=== PATIENT | female | born 1960 | race Caucasian/White ===

== ENCOUNTER 2019-08-06 09:26 | Outpatient (CLI) | payer OTHER, SELFPAY ==
--- NOTE | ~2019-08-06 | MM_ITS ---
EXAMINATION: MM screening mina BI w karri HISTORY: Screening mammogram TECHNIQUE: Craniocaudal and mediolateral oblique 3-D tomosynthesis images were obtained and synthetic 2-D images were generated. CAD analysis was submitted and interpreted. COMPARISON: 05/22/2018, 05/17/2017, 05/11/2016 bilateral digital screening mammogram examinations BREAST PARENCHYMAL COMPOSITION: The breasts are extremely dense, which lowers the sensitivity of mamm ography. FINDINGS: Occasional bilateral benign calcifications. There is a new approximately 6.5 mm circumscrib ed mass in the lower left breast near midline. Diagnostic left mammogram and left breast ultrasound e xamination are recommended. Otherwise there is no evidence of suspicious mass, calcification, or architectural distortion to sugg est malignancy in either breast. There has been no suspicious interval change. IMPRESSION: 1. New 6.5 L circumscribed mass in the lower mid left breast 2. Diagnostic left mammogram and left breast ultrasound examination are recommended. BI-RADS Category 2: Benign finding(s). Reviewed, dictated and finalized at location A. IMPRESSION: 1. New 6.5 L circumscribed mass in the lower mid left breast 2. Diagnostic left mammogram and left breast ultrasound examination are recomme nded. BI-RADS Category 2: Benign finding(s).
--- NOTE | ~2019-08-06 | DEXA_ITS ---
Bone Density Report Name: Jamie Prasad Age: 59 Sex: Female Ethnicity: White Date of : 1960 Indication: osteopenia; monitoring treatment; height loss; inflammatory bowel disease; prior fracture; hysterectomy; Referring Provider: Kady Peraza Study: Bone densitometry was performed. Exam Date: August 06, 2019 Accession number: [id number] Bone Density: Region BMD T-score Z-score Classification AP Spine (L1, L2, L3) 0.811 -1.9 -0.5 Osteopenia Femoral Neck (Left) 0.681 -1.5 -0.2 Osteopenia Total Hip (Left) 0.804 -1.1 -0.2 Osteopenia Total Hip Bilateral Avg 0.751 -1.6 -0.7 Osteopenia Femoral Neck (Right) 0.629 -2.0 -0.7 Osteopenia Total Hip (Right) 0.697 -2.0 -1.1 Osteopenia World Health Organization criteria for BMD impression classify patients as: Normal (T-score at or above -1.0), Osteopenia (T-score between -1.0 and -2.5), or Osteoporosis (T-score at or below -2.5). 10-year Fracture Risk: FRAX not reported because: Treated for osteoporosis Previous Exams: Region Exam Age BMD T-score BMD Change BMD Change Date g/cm2 vs Baseline vs Previous AP Spine(L1, L2, L3) 08/06/2019 59 0.811 -1.9 -0.132(-14.0%) -0.052(-6.0%)* 05/17/2017 57 0.863 -1.4 -0.080(-8.5%)# -0.002(-0.2%) 05/07/2015 54 0.865 -1.4 -0.078(-8.2%)# -0.031(-3.5%)# 04/24/2013 52 0.897 -1.1 -0.046(-4.9%)# 0.022(2.6%) 04/19/2011 50 0.874 -1.3 -0.069(-7.3%)# -0.020(-2.2%)# 12/11/2008 48 0.894 -1.1 -0.049(-5.2%)* -0.029(-3.2%)* 06/22/2005 45 0.923 -0.9 -0.020(-2.1%) -0.020(-2.1%) 06/13/2003 43 0.943 -0.7 Total Hip(Left) 08/06/2019 59 0.804 -1.1 -0.098(-10.9%) -0.009(-1.1%) 05/17/2017 57 0.812 -1.1 -0.089(-9.9%)# -0.074(-8.3%)* 05/07/2015 54 0.886 -0.5 -0.016(-1.7%)# 0.016(1.8%)# 04/24/2013 52 0.870 -0.6 -0.031(-3.5%)# -0.014(-1.5%) 04/19/2011 50 0.884 -0.5 -0.018(-2.0%)# -0.048(-5.2%)# 12/11/2008 48 0.932 -0.1 0.030(3.4%)* 0.105(12.7%)* 06/22/2005 45 0.827 -0.9 -0.075(-8.3%)* -0.075(-8.3%)* 06/13/2003 43 0.902 -0.3 Total Hip(Right) 08/06/2019 59 0.697 -2.0 -0.186(-21.0%) -0.054(-7.2%)* 05/17/2017 57 0.751 -1.6 -0.131(-14.9%) -0.072(-8.7%)* 05/07/2015 54 0.823 -1.0 -0.059(-6.7%)# -0.003(-0.4%)# 04/24/2013 52 0.827 -0.9 -0.056(-6.3%)# 0.029(3.6%)* 04/19/2011 50 0.798 -1.2 -0.085(-9.6%)# -0.056(-6.5%)# 12/11/2008 48 0.854 -0.7 -0.029(-3.3%)* 0.008(0.9%) 06/22/2005 45 0.846 -0.8 -0.037(-4.2%)* -0.037(-4.2%)* 06/13/2003 43 0.883 -0.5 *Denotes signi
== END 2019-08-06 09:27 | disposition home or self-care (01) ==
PROVIDERS: PCP Family Medicine Adolescent Medicine; Visit Provider Student in an Organized Health Care Education/Training Program
DX: Z12.31 Encounter for screening mammogram for malignant neoplasm of breast (principal); Z78.0 Asymptomatic menopausal state; M85.88 Other specified disorders of bone density and structure, other site; M85.852 Other specified disorders of bone density and structure, left thigh; M85.851 Other specified disorders of bone density and structure, right thigh
CPT/HCPCS: 77063; 77067; 77080

== ENCOUNTER 2019-08-27 13:56 | Outpatient (CLI) | payer OTHER, SELFPAY ==
--- NOTE | ~2019-08-27 | MMUS_ITS ---
EXAMINATION: MM diagnostic mammo unilat LT, US breast LT complete HISTORY: New 6.5 mm circumscribed mass reported on 08/06/2019 bilateral digital screening mammogram TECHNIQUE: Additional ML and spot ML and MLO 3-D tomosynthesis images of the left breast were perform ed and synthetic 2-D images were generated. CAD analysis was submitted and interpreted. High resoluti on complete left breast ultrasound was performed. COMPARISON: 08/06/2019 bilateral digital screening mammogram BREAST PARENCHYMAL COMPOSITION: The breasts are extremely dense, which lowers the sensitivity of mamm ography. FINDINGS: MAMMOGRAPHIC FINDINGS: A 6 mm circumscribed mass with halo sign is confirmed anteriorly in the lower outer quadrant of the l eft breast (MLO spot Tomosynthesis image 5/34). ULTRASOUND: 1:00 6 cm from nipple: Parallel circumscribed 4 x 5 x 3.4 mm probable benign lymph node 7:00 1 cm from nipple: Corresponding to the mammographic finding in the anterior lower outer quadrant of the left breast is a parallel circumscribed superficial 5.2 x 7.5 x 8.0 mm hypoechoic lesion with through transmission and posterior enhancement, likely a complicated cyst. IMPRESSION: 1. Benign findings 2. Routine mammographic screening is recommended BI-RADS Category 2: Benign finding(s). Reviewed, dictated and finalized at location A. IMPRESSION: 1. Benign findings 2. Routine mammographic screening is recommended BI-RADS Category 2: Benign finding(s).
== END 2019-08-27 13:57 | disposition home or self-care (01) ==
LOC: ANHIMG 13:56
PROVIDERS: PCP Family Medicine Adolescent Medicine; Visit Provider Student in an Organized Health Care Education/Training Program
DX: R92.8 Other abnormal and inconclusive findings on diagnostic imaging of breast (principal)
CPT/HCPCS: 76641; 77065

== ENCOUNTER 2019-12-20 10:06 | Outpatient (CLI) | payer OTHER, SELFPAY ==
--- NOTE | 2019-12-20 10:48 | ECG_ITS ---
Measurements Intervals [place] Rate: 69 P: 82 OR: 223 QRS: 82 QRSD: 91 T: 53 QT: 403 QTc: 433 Interpretive Statements SINUS RHYTHM WITH FIRST DEGREE AV BLOCK VENTRICULAR PREMATURE COMPLEX DELAYED PRECORDIAL R/S TRANSITION BASELINE ARTIFACT- I, II, AVR, AVL ABNORMAL ECG Electronically Signed On 12-20-2019 11:45:27 CDT by Anival Cruz D.O.
[2019-12-20 11:12] LABS: Basophils Percent Auto 0.7 % (0.2-1.2); Hematocrit 39.4 % (37.0-47.0); Hemoglobin 13.5 g/dL (12.0-15.0); Immature Granulocyte Absolute 0.01 K/mm3 (0.00-0.031); Immature Granulocyte Percent A 0.2 % (0-0.5); Lymphocytes Absolute Auto 1.71 K/mm3 (0.9-3.2); Lymphocytes Percent Auto 30.2 % (18.3-44.2); Mean Corpuscular HGB Conc 34.3 g/dl (32-36); Mean Corpuscular Hemoglobin 30.5 pg (26-34); Mean Corpuscular Volume 88.9 fl (80-100); Mean Platelet Volume 10.3 fl (7.4-10.4); Monocytes Absolute Auto 0.4 K/mm3 (0.1-0.6); Monocytes Percent Auto 7.2 % (2.6-8.5); Neutrophils Absolute Auto 3.5 K/mm3 (1.3-6.7); Neutrophils Percent Auto 61.7 % (45.5-73.1); Platelet Count Result 216 k/mm3 (150-375); Red Blood Count 4.43 M/mm3 (4.2-5.4); Red Cell Distribution Width 11.9 % (11.5-14.5); White Blood Count 5.7 K/mm3 (4.5-10.0)
[2019-12-20 11:15] LABS: Add Urine Microscopic? YES; Appearance Urine Clear (Clear); Bilirubin Urine Negative (Negative); Blood Urine 1+ (Negative); Color Urine Yellow (Yellow); Glucose Urine UA Negative (Negative); Ketones Urine Negative (Negative); Leukocyte Esterase Ur Negative LEU/UL (Negative); Mucus Urine Few /lpf; Nitrate Urine Negative (Negative); Protein Urine Negative (Negative); RBC Urine 0-2 /hpf (0-2); Specific Grav Ur 1.017 (1.001-1.035); Squamous Epithelial Cell Urine Few /hpf (Few); Urobilinogen Urine Negative mg/dL (<2.0); WBC Urine 0-3 /hpf
[2019-12-20 11:19] LABS: Urine Cotinine NEGATIVE
[2019-12-20 11:21] LABS: Hemoglobin A1C 5.1 % (<5.7)
[2019-12-20 11:25] LABS: Partial Thromboplastin Time 27.3 SECONDS (22.3-36.8); Prothrombin Time 12.9 Seconds (11.1-14.7)
[2019-12-20 11:28] LABS: Anion Gap 4 mmol/L (8-16); Blood Urea Nitrogen 15 mg/dL (7-17); Calcium 9.1 mg/dL (8.4-10.2); Carbon Dioxide 31 mmol/L (22-30); Chloride 102 mmol/L (98-107); Estimated Glomerular Filt Rate > 60; Glucose 95 mg/dL (65-105); Potassium 4.3 mmol/L (3.4-5.0); Sodium 137 mmol/L (137-145)
== END 2019-12-20 10:07 | disposition home or self-care (01) ==
LOC: ANHSURGERY 10:07
PROVIDERS: PCP Family Medicine Adolescent Medicine; Visit Provider Orthopaedic Surgery
DX: Z01.818 Encounter for other preprocedural examination (principal); M16.9 Osteoarthritis of hip, unspecified; I44.0 Atrioventricular block, first degree; R94.31 Abnormal electrocardiogram [ECG] [EKG]; Z79.890 Hormone replacement therapy
CPT/HCPCS: 80048; 80307; 81001; 82040; 83036; 85025; 85610; 85730; 86850; 86900; 86901; 87081; 93005

== ENCOUNTER 2019-12-29 00:50 | Outpatient (CLI) | payer OTHER, SELFPAY ==
[2019-12-29 18:05] LABS: SARS-CoV-2 RNA PCR Negative
== END 2019-12-29 00:51 | disposition home or self-care (01) ==
LOC: ANHCOVIDDT 00:50
PROVIDERS: PCP Family Medicine Adolescent Medicine; Visit Provider Orthopaedic Surgery
DX: Z01.812 Encounter for preprocedural laboratory examination (principal); Z20.828 Contact with and (suspected) exposure to other viral communicable diseases
CPT/HCPCS: 87635; C9803; U0003

== ENCOUNTER 2020-01-02 10:47 | Observation (INO) | payer OTHER, SELFPAY ==
[2019-12-20 10:12] VITALS: BMI 20.3
[2019-12-20 10:48] VITALS: BP 117/77; PULSE 72; RESP 16; TEMP 36.7; O2SAT 99
--- NOTE | 2019-12-27 14:35 | PM.IMHP ---
H&P: HPI History of Present Illness Date/Time: Hip Pain Pt presents with Right hip pain that has been present for 2-3 years. She received a cortisone injection July of 2018 which have given results up until this point. She would like to discuss further surgical intervention Involved hip: right Onset: gradual Location of pain: medial, lateral, anterior and posterior Character: stabbing, aching, shooting and weakness Timing of pain: constant Exacerbated by: weight bearing and prolonged activity Relieved by: nothing Associated symptoms: Reports leg pain at rest and weakness History of occupational/recreational activity with repetitive movement: No History of prior hip injury: No Chief complaint: DJD Right Hip Narrative: Jamie Prasad is a 59 year old female Review of Systems Review of Systems: All systems reviewed & are unremarkable except as noted in HPI and below Constitutional: Constitutional: Denies headache(s) and Denies weakness Eyes: Eyes: Denies blurry vision, Denies change in vision and Denies loss of vision ENT: Denies dizziness, Denies dry mouth, Denies headache(s) and Denies nasal congestion Cardiovascular: Cardiovascular: Denies chest pain, Denies syncope, Denies leg edema and Denies dyspnea on exertion Respiratory: Respiratory: Denies cough and Denies dyspnea on exertion Gastrointestinal: Gastrointestinal: Denies abdominal pain, Denies constipation and Denies diarrhea Genitourinary: Genitourinary: Denies urinary frequency Musculoskeletal: Musculoskeletal: Reports as per HPI and Denies numbness Integumentary/Breasts: Skin/Breast: Reports system reviewed and no additional complaints, except as docu Neurologic: Denies dizziness, Denies syncope, Denies headache(s), Denies loss of vision, Denies numbness and Denies weakness Psychiatric: Psychiatric: Reports no additional psychiatric complaints Endocrine: Endocrine: Reports no additional endocrine complaints Hematologic/Lymphatic: Hematologic/Lymphatic: Reports no additional hematologic/lymphatic complaints [facility] Past Medical History Medical History (Updated 11/30/19 @ 12:31 by Fercho Issa MD) Acid reflux Arthritis High cholesterol History of vaginal delivery x 2 Surgical History Surgical History History of breast biopsy History of hysterectomy History of tonsillectomy Family History Family History Other Family history of cardiovascular disease Hypertension Social History Social History Smoking status: Never smoker Second hand tobacco smoke exposure: No Additional smoking assessment comments: DENIES ANY FORM OF TOBACCO/NICOTINE USE Alcohol intake: current Spiritual care concerns: No Meds Home Medications and Allergies Home Medications Medication Instructions Recorded Confirmed Type Lactobacills gasseri-Bifidobac 1 cap PO DAILY 04/13/19 12/20/19 History bifidum,longum 1.5 billion cell capsule linaclotide 72 mcg capsule 72 mcg PO PRN PRN 04/13/19 12/20/19 History melatonin 5 mg capsule 30 mg PO HS 04/13/19 12/20/19 History conjugated estrogens 1.25 mg tablet 1.25 mg PO DAILY #90 tablet 09/02/19 12/20/19 Rx chlorhexidine gluconate 4 % 1 applic TOPICAL ONCE #237 ml 12/03/19 12/20/19 Rx topical liquid cholecalciferol (vitamin D3) 25 mcg PO DAILY 12/20/19 12/20/19 History estradiol [Imvexxy Maintenance 10 mcg VAGINAL 2XW 12/20/19 12/20/19 History Pack] [id number] 1 cap PO DAILY 12/20/19 12/20/19 History [Krill Oil ([place] 3 and 6)] omeprazole [Prilosec] 20 mg PO DAILY 12/20/19 12/20/19 History Allergies Allergy/AdvReac Type Severity Reaction Status Date / Time No Known Allergies Allergy Verified 12/20/19 10:13 Exam Narrative: Exam Narrative: Exam Const Constitutional General: cooperative, healthy emma
--- NOTE | 2019-12-31 10:05 | WPDANESEPPF ---
Anes - Initial Pre Proc Eval Procedure: Operation Date: 01/01/20 07:30 Proposed Procedures p Right Total Hip Arthroplasty - Fercho Issa MD Date/Time: 12/31/19 10:05 Surgeon: Fercho Issa MD Pre Op Diagnosis: DJD Right Hip Patient Data Age: 59 Gender: F Height: 1.68 m Weight: 57.2 kg Last Vital Signs Temp 36.7 C 12/20/19 10:48 Pulse 72 12/20/19 10:48 Resp 16 12/20/19 10:48 BP 117/77 12/20/19 10:48 Pulse Ox 99 12/20/19 10:48 Allergies Allergy/AdvReac Type Severity Reaction Status Date / Time No Known Allergies Allergy Verified 01/01/20 06:13 Home Medications Medication Instructions Recorded Confirmed Type Lactobacills gasseri-Bifidobac 1 cap PO DAILY 04/13/19 01/01/20 History bifidum,longum 1.5 billion cell capsule linaclotide 72 mcg capsule 72 mcg PO PRN PRN 04/13/19 01/01/20 History melatonin 5 mg capsule 30 mg PO HS 04/13/19 01/01/20 History conjugated estrogens 1.25 mg tablet 1.25 mg PO DAILY #90 tablet 09/02/19 01/01/20 Rx chlorhexidine gluconate 4 % 1 applic TOPICAL ONCE #237 ml 12/03/19 01/01/20 Rx topical liquid cholecalciferol (vitamin D3) 25 mcg PO DAILY 12/20/19 01/01/20 History estradiol [Imvexxy Maintenance 10 mcg VAGINAL 2XW 12/20/19 01/01/20 History Pack] [id number] 1 cap PO DAILY 12/20/19 01/01/20 History [Krill Oil ([place] 3 and 6)] omeprazole [Prilosec] 20 mg PO DAILY 12/20/19 01/01/20 History ECG: Date of Service: 12/20/19 Procedure(s): CA 12 lead EKG Accession Number(s): [id number] cc: ~ Measurements Intervals [place] Rate: 69 P: 82 MS: 223 QRS: 82 QRSD: 91 T: 53 QT: 403 QTc: 433 Interpretive Statements SINUS RHYTHM WITH FIRST DEGREE AV BLOCK VENTRICULAR PREMATURE COMPLEX DELAYED PRECORDIAL R/S TRANSITION BASELINE ARTIFACT- I, II, AVR, AVL ABNORMAL ECG Electronically Signed On 12-20-2019 11:45:27 CDT by Anival Cruz D.O. Dictated By: Anival Cruz DO 12/20/19 1119 Patient hx anesthesia problems: none Family hx anesthesia problems: none PMFSH Past Medical History Medical History (Updated 12/31/19 @ 10:06 by Richard Velazquez MD) Acid reflux Arthritis Degenerative joint disease (DJD) of hip High cholesterol History of vaginal delivery x 2 Surgical History Surgical History History of breast biopsy History of hysterectomy History of tonsillectomy Family History Family History Other Family history of cardiovascular disease Hypertension Social History Social History Smoking status: Never smoker Second hand tobacco smoke exposure: No Additional smoking assessment comments: DENIES ANY FORM OF TOBACCO/NICOTINE USE Alcohol intake: current Living arrangements: with family Spiritual care concerns: No Anes - Eval Final PreProcedure Day of Procedure 12/31/19 10:05 Patient weight: overweight Heart: regular rate and rhythm Lungs: clear to auscultation and normal air movement Airway: Mallampati scale class II Neurological: alert and oriented Last oral intake: >/= 8 hours ASA classification: II Emergent: no Anesthetic plan: proceed Anesthesia type and monitoring: general ETT Informed Consent: The patient's anesthetic plan and its attendant risks and benefits were discussed with the patient/family/POA. Questions were solicited and answers provided to the satisfaction of the patient/family/POA.
[2020-01-01] VITALS (18 sets, daily range): BP systolic 126–176; BP diastolic 54–95; PULSE 64–87; RESP 12–18; TEMP 36.2–36.7; O2SAT 89–100
[2020-01-01] MEDS: ACETAMINOPHEN 500 MG TABLET 1000 MG PO (06:18)
[2020-01-01] MEDS: LACTATED RINGERS 1,000 ML 30 ML IV CONT ×2 (06:30→10:20)
[2020-01-01] MEDS: KETOROLAC 15 MG/ML VIAL (*BKC) IV PUSH (06:37)
[2020-01-01] MEDS: TRANEXAMIC ACID 1,000MG/ISO100 1,000 MG/100 ML BAG 200 MG IVPB (07:07)
--- NOTE | 2020-01-01 07:26 | WPDHPUPDATE1 ---
History and Physical Update Update Date/Time: 01/01/20 07:26 History and Physical has been reviewed, including an updated exam of the patient. There are NO changes in the patient's condition. Risks, benefits, and alternatives have been discussed and questions answered. Patient agrees to proceed with procedure.
[2020-01-01] MEDS: ceFAZolin 2 GM/D5W 50 ML 2 GM/50 ML BAG IVPB ×3 (07:30→20:01)
[2020-01-01] MEDS: fentaNYL CITRATE INJ (*CRX) 100 MCG/2 ML VIAL 25 MCG IV PUSH ×8 (10:29→10:50)
--- NOTE | 2020-01-01 10:38 | PM.PROC ---
Procedure Note - Detailed Date of procedure: 01/01/20 Pre-op diagnosis: DJD Right Hip R HIP DJD Post-op diagnosis: same Procedure performed: R JOANIE Description of procedure: THE PATIENT WAS TAKEN TO THE OPERATING ROOM IN STABLE CONDITION AND WAS PLACED IN THE LATERAL DECUBITUS AND THE RIGHT LOWER EXTREMITY WAS PREPPED AND DRAPED IN THE STERILE FASHION. INCISION WAS MADE IN THE POSTERIOR LATERAL SIDE OF THE HIP, DOWN TO THE FASCIA LAYER. THE FASCIA WAS INCISED. THE HIP WAS EXPOSED. THE SHORT EXTERNAL ROTATORS WERE EXPOSED. THE SCIATIC NERVE WAS IDENTIFIED. THERE WAS A HIGH BIFURCATION OF THE NERVE. INCISION WAS MADE THROUGH THE SORT EXTERNAL ROTATORS AND THE CAPSULE OF THE HIP JOINT. THE HIP WAS DISLOCATED. AN OSTEOTOMY WAS MADE TO THE FEMORAL NECK ABOUT 1 CM PROXIMAL TO THE LESSER TROCHANTER. THE ACETABULUM WAS EXPOSED. THERE WAS SEVERE DJD SEEN. BEGINNING WITH A 44 REAMER THE ACETABULUM WAS REAMED TO 49 MM. A 49 MM TRIAL WAS PLACED IN 35 DEG OF ABDUCTION AND ANTEVERSION WAS IN ALIGNMENT WITH THE TRANS ACETABULAR LIGAMENT. THE FIT WAS EXCELLENT. THE TRIAL WAS REMOVED. A 50 MM BIOMET G7 COMPONENT WAS THEN TAPPED IN TO PLACE IN 35 DEG OF ABDUCTION AND ANTEVERSION IN ALIGNMENT WITH THE TRANSVERSE ACETABULAR LIGAMENT. THE FIT WAS EXCELLENT. THE ACETABULAR LINER WAS PLACED AND CHECKED FOR STABILITY. NEXT THE FEMUR WAS PREPARED WITH INITIAL CANAL FINDER THEN SEQUENTIAL BROACHING WITH A TAPERLOC HIP SYSTEM, UNTIL A 14 BROACH FIT WELL IN 15 OF ANTEVERSION. A +6 STANDARD OFFSET NECK WITH 36 MM HEAD TRIAL WAS PLACED. THE MAURA TEST WAS EXCELLENT AND THE STABILITY IN FLEXION AND ROTATION WAS EXCELLENT. LEG LENGTHS WERE GROSSLY EQUAL. TRIALS WERE REMOVED. A BIOMET TAPERLOC 14 STEM WAS PLACED WITH A STANDARD OFFSET NECK. THE FIT WAS EXCELLENT IN 15 DEG OF ANTEVERSION. A +6 CERAMIC 36 MM FEMORAL HEAD WAS PLACED. THE HIP WAS TRIALED AND THE STABILITY WAS EXCELLENT WERE THE LEG LENGTHS AND THE SCHUK TEST. THE WOUND WAS IRRIGATED WITH STERILE BETADINE AND WATER FOR 3 MIN. THEN WASHED AGAIN. THE CAPSULE AND THE EXTERNAL ROTATORS WERE APPROXIMATED WITH NUMBER 1 VICRYL. THE FASCIA WITH No 2 QUIL AND THE SUB CUTANEOUS LAYER WITH 2-0 ABSORBABLE SUTURE WITH A RUNNING 3-0 SUBCUTICULAR LAYER WELL. DERMABOND WAS PLACED AND STERILE DRESSING WAS APPLIED. PATIENT WAS PLACED BACK ON TO THE SUPINE POSITION AND WAS EXTUBATED. Anesthesia: GETA Surgeon: Fercho Issa MD Estimated blood loss (mL): 300 Drains: No Complications: No immediate complications Condition: stable Disposition: PACU
[2020-01-01] MEDS: HYDROmorphone HCL INJ (*CRX) 1 MG/ML SYR 0.25 MG IV PUSH ×8 (10:56→11:31)
[2020-01-01] MEDS: MIDAZOLAM HCL (*CRX) 2 MG/2 ML VIAL 1 MG IV PUSH (11:31)
--- NOTE | 2020-01-01 12:36 | ADMGEN ---
This patient, Jamie Prasad, was admitted to 2 Medical Room 247-. Patient/family oriented to hospital policies and general routines including ID bracelet, bed and alarms, visiting hours, pain management, procedures, bathroom and other care routines, personal items, smoking policy, room service/diet, and visiting hours. Information on how to activate the Rapid Response Team has been discussed. Patient/Family are encouraged to report perceived risks to care and to ask questions if they do not understand what they are told or what they should do.
[2020-01-01] MEDS: MORPHINE SULFATE (*CRX) 4 MG/ML INJ 3 MG IV PUSH ×2 (12:49→16:00)
[2020-01-01] MEDS: SODIUM CHLORIDE 0.9% IV 1,000 ML 125 ML IV CONT ×2 (12:54→22:14)
[2020-01-01 13:03] LABS: Hematocrit 35.1 % (37.0-47.0); Hemoglobin 11.8 g/dL (12.0-15.0)
[2020-01-01] MEDS: ONDANSETRON INJ 4 MG/2 ML VIAL IV PUSH (15:13)
[2020-01-01] MEDS: diazePAM (*CRX) 5 MG TABLET PO (16:07)
[2020-01-01] MEDS: DOCUSATE SODIUM 100 MG CAPSULE PO (16:07)
[2020-01-01] MEDS: HYDROcodone/acetaminophen (*CRX) 7.5-325 MG TABLET 1 TAB PO ×2 (19:06→22:17)
[2020-01-01] MEDS: FAMOTIDINE 20 MG TABLET PO (20:53)
[2020-01-02] VITALS (8 sets, daily range): BP systolic 103–126; BP diastolic 45–62; PULSE 74–100; RESP 15–22; TEMP 36.1–37.2; O2SAT 98–100
--- NOTE | ~2020-01-02 | XR_ITS ---
EXAMINATION: XR hip RT 1V DATE: 01/01/2020 10:30 INDICATION: Postoperative evaluation following right total hip arthroplasty TECHNIQUE: Anteroposterior view of the right hip were obtained. COMPARISON: 11/30/2019 FINDINGS: Interval placement of a right total hip arthroplasty which appears well seated in near anatomic align ment. Expected subcutaneous gas in the postoperative bed. No fractures identified. IMPRESSION: 1. Right total hip arthroplasty, negative for postoperative purposes. Reviewed, dictated and finalized at location B.
[2020-01-02] MEDS: diazePAM (*CRX) 5 MG TABLET PO ×3 (00:41→17:04)
[2020-01-02] MEDS: HYDROcodone/acetaminophen (*CRX) 7.5-325 MG TABLET 1 TAB PO ×6 (01:24→18:31)
[2020-01-02] MEDS: ceFAZolin 2 GM/D5W 50 ML 2 GM/50 ML BAG IVPB (04:37)
[2020-01-02 05:55] LABS: Basophils Percent Auto 0.1 % (0.2-1.2); Hematocrit 25.7 % (37.0-47.0); Hemoglobin 8.6 g/dL (12.0-15.0); Immature Granulocyte Absolute 0.05 K/mm3 (0.00-0.031); Immature Granulocyte Percent A 0.4 % (0-0.5); Lymphocytes Absolute Auto 1.44 K/mm3 (0.9-3.2); Lymphocytes Percent Auto 11.5 % (18.3-44.2); Mean Corpuscular HGB Conc 33.5 g/dl (32-36); Mean Corpuscular Hemoglobin 30.2 pg (26-34); Mean Corpuscular Volume 90.2 fl (80-100); Mean Platelet Volume 10.6 fl (7.4-10.4); Monocytes Percent Auto 8.3 % (2.6-8.5); Neutrophils Percent Auto 79.7 % (45.5-73.1); Platelet Count Result 152 k/mm3 (150-375); Red Blood Count 2.85 M/mm3 (4.2-5.4); Red Cell Distribution Width 12.2 % (11.5-14.5); White Blood Count 12.6 K/mm3 (4.5-10.0)
[2020-01-02 06:08] LABS: Anion Gap 3 mmol/L (8-16); Blood Urea Nitrogen 8 mg/dL (7-17); Calcium 7.5 mg/dL (8.4-10.2); Carbon Dioxide 28 mmol/L (22-30); Chloride 105 mmol/L (98-107); Estimated CRCL calculation 79 ml/min; Estimated Glomerular Filt Rate > 60; Glucose 102 mg/dL (65-105); Potassium 3.9 mmol/L (3.4-5.0); Sodium 136 mmol/L (137-145)
[2020-01-02] MEDS: SODIUM CHLORIDE 0.9% IV 1,000 ML 125 ML IV CONT (07:16)
--- NOTE | 2020-01-02 07:46 | WPDANESPN ---
Anes - Prog Note Post-Op Date/Time: 01/02/20 07:46 Cardiovascular status: normal Respiratory status: normal Airway patency: baseline Mental status: baseline Post-Op hydration status: normal Vital Signs: Last Vital Signs Temp 97.7 F 01/02/20 06:14 Pulse 100 01/02/20 06:14 Resp 20 01/02/20 06:14 BP 103/59 L 01/02/20 06:14 Pulse Ox 98 01/02/20 06:14 Pain Score (VAS): 03/16 I/O: Intake & Output 01/01/20 01/01/20 01/02/20 15:59 23:59 07:59 Intake Total 450 1520 1390 Output Total 500 2000 Balance 450 1020 -610 Laboratory Tests 01/02/20 05:28 01/02/20 05:28 01/01/20 01/02/20 01/02/20 12:47 05:28 05:28 WBC 12.6 H RBC 2.85 L Hgb 11.8 L 8.6 L D Hct 35.1 L 25.7 L MCV 90.2 MCH 30.2 MCHC 33.5 RDW 12.2 Plt Count 152 MPV 10.6 H Immature Gran % (Auto) 0.4 Neut % (Auto) 79.7 H Lymph % (Auto) 11.5 L [place] % (Auto) 8.3 Eos % (Auto) 0.0 Baso % (Auto) 0.1 L Lymph # (Auto) 1.44 [place] # (Auto) 1.0 H Eos # (Auto) 0.0 Baso # (Auto) 0.0 Abs Immat Gran (auto) 0.05 H Absolute Neuts (auto) 10.0 H Absolute Nucleated RBC 0.0 Nucleated RBC % 0.0 Sodium 136 L Potassium 3.9 Chloride 105 Carbon Dioxide 28 Anion Gap 3 L BUN 8 D Creatinine 0.60 L Estim Creat Clear Calc 79 Estimated GFR > 60 Glucose 102 Calcium 7.5 L Post-procedural complaints: none Patient Feedback: Patient satisfied with anesthetic care.
[2020-01-02] MEDS: KETOROLAC 30 MG/ML VIAL (*BKC) IV PUSH (08:06)
--- NOTE | 2020-01-02 08:11 | PC.NURSE ---
Patient has had c/o nausea intermittently since surgery. C/o right hip pain 6/ and will try a pain pill again after breakfast. Trembling and quivering of lips noted and patient states it is related to pain. Neurovascular check completed and patient c/o sharp pain with movement of right leg. Dressing D/I to right leg and no bruising or swelling noted. Neurovascular check WNL. Will give a dose of Toradol IVP until patient tolerates po intake. Attempting breakfast at this time.
--- NOTE | 2020-01-02 09:01 | PM.PNORT ---
Progress Note: A&P Additional Plan POD 1 DOING WELL. CONTINUE PT. ANTICIPATE DC ON TUESDAY Subjective Subjective Date/Time Seen: 01/02/20 09:01 POD 1 DOING WELL. PAIN CONTROL IMPROVED. NO CALF PAIN Exam Extrem: Other: VSS AFEBRILE DRESSING DRY MILDLY WEAK DORSIFLEXION BUT ANT TIBIALIS IS WORKING ARE EHL ANDTHE LESSER TOES. MILD NUMBNESS TO THE DORSUM OF FOOT. Objective Data Vital Signs Vital Signs: Vital Signs - 24 hr 01/01/20 10:20 01/01/20 10:35 01/01/20 10:50 Temperature 36.2 C L Pulse Rate 67 68 68 Respiratory Rate 12 14 14 Blood Pressure 129/75 176/54 H 147/73 H Pulse Oximetry 100 100 100 01/01/20 11:05 01/01/20 11:20 01/01/20 11:35 Temperature 36.2 C L Pulse Rate 65 74 64 Respiratory Rate 18 14 12 Blood Pressure 154/95 H 157/80 H 152/63 H Pulse Oximetry 100 100 95 01/01/20 11:45 01/01/20 11:50 01/01/20 12:05 Temperature Pulse Rate 64 73 Respiratory Rate 12 16 Blood Pressure 134/78 133/72 Pulse Oximetry 89 L 99 100 01/01/20 12:20 01/01/20 12:40 01/01/20 12:55 Temperature Pulse Rate 76 75 80 Respiratory Rate 16 16 16 Blood Pressure 132/80 148/71 H 144/69 H Pulse Oximetry 100 100 100 01/01/20 13:25 01/01/20 14:25 01/01/20 18:25 Temperature 36.6 C 36.7 C Pulse Rate 68 72 75 Respiratory Rate 16 16 16 Blood Pressure 139/68 135/61 148/71 H Pulse Oximetry 100 100 98 01/01/20 19:46 01/01/20 22:16 01/02/20 02:16 Temperature 36.7 C 36.5 C Pulse Rate 71 87 100 Respiratory Rate 16 18 20 Blood Pressure 126/60 103/59 L Pulse Oximetry 95 100 98 01/02/20 06:14 Temperature 36.5 C Pulse Rate 100 Respiratory Rate 20 Blood Pressure 103/59 L Pulse Oximetry 98 Intake/Output Intake/Output: Intake & Output 12/30/19 12/31/19 01/01/20 01/02/20 23:59 23:59 23:59 23:59 Intake Total 2120 1510 Output Total 500 1999 Balance 1620 -439 Meds/Results Medications: Active Medications Generic Name Dose Route Start Last Admin Trade Name Freq PRN Reason Stop Dose Admin Acetaminophen 650 mg 01/01/20 12:31 Acetaminophen 325 Mg Tablet PO Q6H PRN Mild Pain (1-3) or Fever Hydrocodone Bitart/Acetaminophen 1 tab 01/01/20 12:31 01/02/20 08:35 Hydrocodone/Acetaminophen (*Crx) 7.5-325 Mg Tablet PO 1 tab Q3H PRN Administration Pain Rated 4-6 Artificial Tears 1 drop 01/01/20 19:26 01/01/20 20:54 Artificial Tears Op Soln 15 Ml Bottle EACH EYE 1 drop QID PRN Administration Dry Eye(s) Aspirin 650 mg 01/02/20 09:00 Aspirin 325 Mg Enteric Tablet PO DAILY JESUS MANUEL Diazepam 5 mg 01/01/20 12:31 01/02/20 08:00 Diazepam (*Crx) 5 Mg Tablet PO 5 mg Q6H PRN Administration Anxiety/Muscle Spasm Docusate Sodium 100 mg 01/01/20 17:00 01/01/20 16:07 Docusate Sodium 100 Mg Capsule PO 100 mg BID JESUS MANUEL Administration Famotidine 20 mg 01/01/20 21:00 01/01/20 20:53 Famotidine 20 Mg Tablet PO 20 mg Q12HR JESUS MANULE Administration Sodium Chloride 1,000 mls @ 125 mls/hr 01/01/20 12:31 01/02/20 07:16 Normal Saline Iv IV CONT 125 mls/hr .Q8H JESUS MANUEL Administration Ketorolac Tromethamine 30 mg 01/01/20 18:53 01/02/20 08:06 Ketorolac 30 Mg/Ml Vial (*Bkc) IV PUSH 01/03/20 18:54 30 mg Q6H PRN Administration Pain Rated 4-6 Magnesium Hydroxide 30 ml 01/01/20 12:31 Magnesium Hydroxide Susp 30 Ml Udc PO BID PRN Constipation Morphine Sulfate 3 mg 01/01/20 12:31 01/01/20 16:00 Morphine Sulfate (*Crx) 4 Mg/Ml Inj IV PUSH 3 mg Q3H PRN Administration Pain Rated 7-10 Non-Formulary Medication 72 mcg 01/01/20 12:31 Linaclotide [Linzess] PO 01/31/20 12:32 PRN PRN Constipation Ondansetron HCl 4 mg 01/01/20 14:48 01/01/20 15:13 Ondansetron Inj 4 Mg/2 Ml Vial IV PUSH 4 mg Q4H PRN Administration Nausea And Vomiting Radiology Results: ITS Impressions Hip X-Ray 01/01/20 10:51 IMPRESSION: 1. Right total hip arthroplasty, negative fo
--- NOTE | 2020-01-02 09:14 | PC.NURSE ---
Addendum entered by Ethel Pacheco RN 01/02/20 10:01: Patient with weak dorsiflex - more notable when walking with P.T. Dr. Issa here and observed patient ambulating and difficulty with dorsiflex of right foot. Original Note: Dr. Issa here to make rounds and observed patient ambulating with physical therapy. Patient reported right foot numbness to Dr. Issa.
[2020-01-02] MEDS: DOCUSATE SODIUM 100 MG CAPSULE PO ×2 (09:33→16:58)
[2020-01-02] MEDS: FAMOTIDINE 20 MG TABLET PO ×2 (09:33→20:25)
[2020-01-02] MEDS: ASPIRIN 325 MG ENTERIC TABLET 650 MG PO (09:33)
--- NOTE | 2020-01-02 10:54 | PCOTNOTE ---
On 01/02/20, the student, Dayami Gaming, provided care and [facility]. I have reviewed the student's documentation and agree with the findings.
--- NOTE | 2020-01-02 15:25 | PC.NURSE ---
On 01/02/20, the student, Valeri Cruz, provided care and completed [facility] documentation on this patient. I have reviewed the student's documentation and agree with the findings.
--- NOTE | 2020-01-02 15:38 | PC.NURSE ---
Patient requesting discharge home. P.T. states patient did well with therapy and can discharge from their standpoint. [facility] is set up to follow patient at home per care coordination. Called Dr. Issa. He is out of the office and unable to call in patient scripts. Patient will be seen by Vanesa ASSISTANT FILM EDITOR in the morning and will be discharged at that time if all is well. Discussed with patient and she verbalized her understanding of plan.
[2020-01-03] MEDS: HYDROcodone/acetaminophen (*CRX) 7.5-325 MG TABLET 1 TAB PO ×2 (03:28→08:35)
[2020-01-03 05:54] VITALS: BP 114/60; PULSE 92; RESP 20; TEMP 36.3; O2SAT 99
[2020-01-03] MEDS: ASPIRIN 325 MG ENTERIC TABLET 650 MG PO (08:35)
[2020-01-03] MEDS: DOCUSATE SODIUM 100 MG CAPSULE PO (08:35)
[2020-01-03] MEDS: FAMOTIDINE 20 MG TABLET PO (08:35)
--- NOTE | 2020-01-03 09:07 | PC.NURSE ---
Discussed continued issue with dorsiflexing right foot - with Vanesa Bolanos NP. She is here and has assessed patient also. Will continue to monitor.
--- NOTE | 2020-01-03 09:09 | PM.PNORT ---
Progress Note: A&P Assessment and Plan (1) S/P total hip arthroplasty: Qualifiers: Laterality: right Qualified Code(s): Z96.641 - Presence of right artificial hip joint Code(s): Z96.649 - Presence of unspecified artificial hip joint Status: Acute Assessment and Plan: POD #2: Right JOANIE Continue PT/OT. WBAT. Walker. High Fall Risk. Mild weakness with dorsiflexion/eversion, improving from POD #1 per patient. Continue pain control. Ice Lateral Hip. SCDs. Incentive Spirometry. DVT prophylaxis. Dispo: Home with Home Health likely today pending progress with PT/OT. Subjective Subjective Date/Time Seen: 01/03/20 09:09 POD #2: Right JOANIE No new complaints. Feeling well. Wants to go home today if cleared by PT/OT. Review of Systems Review of Systems: All systems reviewed & are unremarkable except as noted in HPI and below Constitutional: Constitutional: Denies chills, Denies fever(s), Denies headache(s), Denies lethargy and Reports weakness ENT: Denies headache(s) Cardiovascular: Cardiovascular: Denies chest pain, Denies diaphoresis, Denies lightheadedness, Denies palpitations, Denies dyspnea and Denies dyspnea on exertion Respiratory: Respiratory: Denies cough, Denies dyspnea and Denies dyspnea on exertion Gastrointestinal: Gastrointestinal: Denies constipation, Denies diarrhea, Denies nausea and Denies vomiting Genitourinary: Genitourinary: Reports urinary frequency, Denies dysuria and Denies urinary hesitancy Musculoskeletal: Musculoskeletal: Reports joint swelling (Right Hip ) and Reports limited range of motion (Right Hip due to recent surgery ) Neurologic: Denies headache(s) and Reports weakness Endocrine: Endocrine: Denies palpitations Exam Const: General: comfortable and no acute distress Resp: Effort & Inspection: normal respiratory effort Cardio: Rate: regular rate Rhythm: regular rhythm GI: Inspection: non-distended Skin: General skin exam: normal color Other: Incision right hip c/d/i. Surrounding tissue without redness/warmth. Thigh soft, nontender. Mild swelling consistent with recent surgery. No drainage. Neuro: Cognition (Neuro): normal cognition Speech: normal speech Other: Strength RLE decreased due to recent surgery. mild weakness with dorsiflexion/eversion but improving. Mild numbness to dorsum of the forefoot, great toe. Otherwise NV intact. +plantarflexion/inversion. Moves toes. Sensation otherwise intact to light touch. Extrem: Right lower extremity: normal to inspection, normal capillary refill and hip/thigh Details: tenderness Location: of the hip (Thigh soft ) Location: laterally and anteriorly, swelling Location: at the hip, abnormal ROM (limited consistent with recent surgery ) and other (Incision c/d/i. ); no deformity and no unusual warmth Objective Data Vital Signs Vital Signs: Vital Signs - 24 hr 01/02/20 10:05 01/02/20 13:50 01/02/20 18:05 Temperature 36.6 C 36.9 C 37.2 C Pulse Rate 78 91 92 Respiratory Rate 15 15 16 Blood Pressure 118/54 L 117/56 L 122/60 Pulse Oximetry 100 99 98 01/02/20 21:19 01/02/20 22:08 01/03/20 05:54 Temperature 36.1 C L 36.3 C L Pulse Rate 79 92 Respiratory Rate 22 H 20 Blood Pressure 126/62 114/60 Pulse Oximetry 98 100 99 Intake/Output Intake/Output: Intake & Output 12/31/19 01/01/20 01/02/20 01/03/20 23:59 23:59 23:59 23:59 Intake Total 2120 2320 630 Output Total 500 3950 1200 Balance 1620 -5100 -514 Meds/Results Medications: Active Medications Generic Name Dose Route Start Last Admin Trade Name Freq PRN Reason Stop Dose Admin Acetaminophen 650 mg 01/01/20 12:31 Acetaminophen 325 Mg Tablet PO Q6H PRN Mild Pain (1-3) or Fever Hydrocodone Bitart/Acetaminophen 1 tab 01/01/20 12:31 01/03/20 08:35 Hydrocodone/Acetaminophen (*Crx) 7.5-325 Mg Tablet PO 1 tab Q3H PRN Administration Pain Rated 4-6 Artificial Tears 1 drop 01/01/20 19:26
[2020-01-03 09:24] VITALS: BP 115/57; PULSE 87; RESP 16; TEMP 36.8; O2SAT 100
--- NOTE | 2020-01-03 16:02 | PM.DS ---
DS: Admitting Diagnosis Admitting Diagnosis Admitting Diagnosis: DJD Right Hip DS: Discharge Diagnosis Discharge Diagnosis (1) S/P total hip arthroplasty: Qualifiers: Laterality: right Qualified Code(s): Z96.641 - Presence of right artificial hip joint Code(s): Z96.649 - Presence of unspecified artificial hip joint Status: Acute Assessment and Plan: POD #2: Right JOANIE Continue PT/OT. WBAT. Walker. High Fall Risk. Mild weakness with dorsiflexion/eversion, improving from POD #1 per patient. Continue pain control. Ice Lateral Hip. SCDs. Incentive Spirometry. DVT prophylaxis. Dispo: Home with Home Health likely today pending progress with PT/OT. DS: Summary Hospital Course Reason for hospitalization: Right total hip arthroplasty Hospital Course: 59-year-old female admitted status post right total hip arthroplasty for postoperative pain control, medical management and physical/occupational therapy. Patient progressed well with PT and OT. She does have mild weakness with dorsiflexion and eversion which is improved over the course of postop day 2. Her pain has been well controlled. She was stable hospitalization. She was cleared by formal physical therapy to be discharged home with home health. She will be discharged home with home health today and she will follow up in our office on January 20. Status at Discharge Functional status at discharge: uses cane/walker Overall status at discharge: patient is progressing back to baseline Time Spent with Patient Time attestation: Total time spent providing and/or coordinating discharge services: Exam Const: General: comfortable and no acute distress Resp: Effort & Inspection: normal respiratory effort Cardio: Rate: regular rate Rhythm: regular rhythm GI: Inspection: non-distended Skin: General skin exam: normal color Other: Incision right hip c/d/i. Surrounding tissue without redness/warmth. Thigh soft, nontender. Mild swelling consistent with recent surgery. No drainage. Neuro: Cognition (Neuro): normal cognition Speech: normal speech Other: Strength RLE decreased due to recent surgery. mild weakness with dorsiflexion/eversion but improving. Mild numbness to dorsum of the forefoot, great toe. Otherwise NV intact. +plantarflexion/inversion. Moves toes. Sensation otherwise intact to light touch. Extrem: Right lower extremity: normal to inspection, normal capillary refill and hip/thigh Details: tenderness Location: of the hip (Thigh soft ) Location: laterally and anteriorly, swelling Location: at the hip, abnormal ROM (limited consistent with recent surgery ) and other (Incision c/d/i. ); no deformity and no unusual warmth Discharge Plan Discharge Attending physician on discharge: Fercho Issa Discharging Clinician: Vanesa Nicholson Anticipated Discharge Date/Time: 01/03/20 15:00 Patient Disposition: Home Health Service Activity: may shower, no driving and follow weight bearing status Diet: as tolerated Wound Care Instructions: follow printed instructions Discharge Instructions: Post Op Total Hip Replacement Instructions Dr. Fercho Issa ?Your dressing will be changed prior to your discharge. You will be sent home with one additional dressing to be changed in 5 days by the home health RN. If your incision was closed with hammad, they will be removed on the 14th day after surgery and steri-strips will be placed. If your incision was closed with dermabond, allow the dermabond to fall off naturally and do not disrupt incision healing. ?You may shower with your dressing but do not submerge in a bath tub. ?Do not drive or operate machinery until you are released by Dr. Issa. ?Do not walk without a walker for any reason until you are released by Dr. Issa. ?Continue to apply ice to the hip intermittently for additional pain relief. Protect your skin with a towel or pillow case. ?Continue to follow strict
== END 2020-01-03 10:50 | disposition home health service (06) ==
LOC: ANHSURGERY 11:20 → ANH2MED 11:20
PROVIDERS: Admitting Provider Orthopaedic Surgery; PCP Family Medicine Adolescent Medicine; Visit Provider Orthopaedic Surgery
PROC: (CPT 27130; principal; 2020-01-01 07:30)
DX: M16.11 Unilateral primary osteoarthritis, right hip (principal); E78.00 Pure hypercholesterolemia, unspecified; K21.9 Gastro-esophageal reflux disease without esophagitis
CPT/HCPCS: 27130; 36415; 73501; 80048; 85014; 85018; 85025; 97110; 97116; 97161; 97165; 97530; A9270; C1713; C1776; G0378; J0171; J0690; J1100; J1170; J1885; J2250; J2270; J2405; J2704; J2710; J2795; J3010; J7030; J7120

== ENCOUNTER 2020-01-10 09:19 | Outpatient (CLI) | payer OTHER, SELFPAY ==
--- NOTE | ~2020-01-10 | US_ITS ---
EXAMINATION: US venous doppler LE RT DATE: 01/10/2020 09:54 INDICATION: Respiratory failure. Right lower limb pain. Recent right hip surgery. TECHNIQUE: Grayscale ultrasound images without and with compression and Doppler ultrasound images of the right lower extremity veins were obtained. COMPARISON: None. FINDINGS: The visualized portions of right common femoral vein, profunda (deep) femoral vein, femoral vein, pop liteal vein, peroneal trunk, posterior tibial veins, peroneal veins, gastrocnemius vein and greater s aphenous vein outflow are patent. IMPRESSION: 1. No deep venous thrombosis in the right lower limb. Reviewed, dictated and finalized at location A. RNAL WHOLESALER
== END 2020-01-10 09:20 | disposition home or self-care (01) ==
LOC: ANHIMG 09:22
PROVIDERS: PCP Family Medicine Adolescent Medicine; Visit Provider Orthopaedic Surgery
DX: M79.661 Pain in right lower leg (principal)
CPT/HCPCS: 93971

== ENCOUNTER 2020-08-20 08:40 | Outpatient (CLI) | payer OTHER, SELFPAY ==
--- NOTE | ~2020-08-20 | MM_ITS ---
EXAMINATION: MM screening mina BI w karri HISTORY: Screening mammogram TECHNIQUE: Craniocaudal and mediolateral oblique 3-D tomosynthesis images were obtained and synthetic 2-D images were generated. CAD analysis was submitted and interpreted. COMPARISON: 08/27/2019, 08/06/2019, 05/22/2018 BREAST PARENCHYMAL COMPOSITION: The breasts are extremely dense, which lowers the sensitivity of mamm ography. FINDINGS: Scattered benign-appearing calcifications are present. There is no evidence of suspicious m ass, calcification, or architectural distortion to suggest malignancy in either breast. There has bee n no suspicious interval change. IMPRESSION: 1. No mammographic evidence of malignancy. 2. Recommend routine screening mammography in one year. BI-RADS Category 2: Benign finding(s). Reviewed, dictated and finalized at location A.
== END 2020-08-20 08:41 | disposition home or self-care (01) ==
LOC: ANHIMG 08:41
PROVIDERS: PCP Family Medicine Adolescent Medicine; Visit Provider Student in an Organized Health Care Education/Training Program
DX: Z12.31 Encounter for screening mammogram for malignant neoplasm of breast (principal)
CPT/HCPCS: 77063; 77067

== ENCOUNTER 2021-10-19 08:50 | Outpatient (CLI) | payer OTHER, SELFPAY ==
--- NOTE | ~2021-10-19 | DEXA_ITS ---
Bone Density Report Name: YANNICK CONTRERAS Age: 61 Sex: Female Ethnicity: White Date of : 1960 Indication: postmenopausal; screening for osteoporosis; height loss; inflammatory bowel disease; asthma or emphysema; hysterectomy; Referring Provider: KRISTOPHER RUVALCABA Study: Bone densitometry was performed. Exam Date: October 19, 2021 Accession number: [id number] Bone Density: Region BMD T-score Z-score Classification AP Spine(L1-L4) 0.921 -1.1 0.4 Osteopenia Femoral Neck (Left) 0.725 -1.1 0.3 Osteopenia Total Hip (Left) 0.852 -0.7 0.3 Normal World Health Organization criteria for BMD impression classify patients as: Normal (T-score at or above -1.0), Osteopenia (T-score between -1.0 and -2.5), or Osteoporosis (T-score at or below -2.5). 10-year Fracture Risk(1): Major Osteoporotic Fracture 7.1% Hip Fracture 0.5% Reported Risk Factors: [place] (), Neck BMD=0.725, BMI=21.5 (1) FRAX(R) Version 3.08. Fracture probability calculated for an untreated patient. Fracture probability may be lower if the patient has received treatment. Clinical Information Provided by Patient: Has used the following medications: Vitamin D Has the following medical conditions: Asthma or Emphysema, Inflammatory bowel diseases, Hysterectomy Patient maximum height was 68 Onset of menses at age 12 Number of children 2 Impression: UNAPPROVED The patient has low bone mass, based on the Total Spine T-score. The patient has an estimated ten-year risk of hip fracture of 0.5% and an estimated ten-year risk of major fracture of 7.1%, based on the WHO FRAX algorithm. Discussion: UNAPPROVED BONE DENSITY IS LOW AT ONE OR MORE SKELETAL SITES. This patient's lowest T-score is low at one or more skeletal sites. It meets the World Health Organization's (WHO) criteria for ?low bone mass? (T-score between -1.0 and -2.5). The patient's 10-year risk of fracture as calculated by FRAX is less than the threshold where pharmacological therapy is recommended by the National Osteoporosis Foundation (NOF). However, all treatment decisions require clinical judgment and consideration of individual patient factors, including patient preferences, comorbidities, previous drug use, risk factors not captured in the FRAX model (e.g., frailty, falls, vitamin D deficiency, increased bone turnover, interval significant decline in bone density) and possible under or overestimation of fracture risk by FRAX. The patient should follow a healthful lifestyle (good nutrition with adequate calcium and vitamin D, and appropriate weight-bearing exercise). Follow-Up: UNAPPROVED Consider repeating this study in 2 to 3 years to reassess this patient's status, or sooner if there is some new clinical indication. Reported by: JENNIFER on 10/19/2021 9:06:00 AM.
--- NOTE | ~2021-10-19 | MM_ITS ---
EXAMINATION: MM screening mina BI w karri HISTORY: Screening mammogram TECHNIQUE: Craniocaudal and mediolateral oblique 3-D tomosynthesis images were obtained and synthetic 2-D images were generated. CAD analysis was submitted and interpreted. COMPARISON: 08/20/2020 bilateral screening mammogram 08/27/2019 diagnostic left mammogram and complete left breast ultrasound 08/06/2019, 05/22/2018 bilateral screening mammogram examinations BREAST PARENCHYMAL COMPOSITION: The breasts are extremely dense, which lowers the sensitivity of mamm ography. FINDINGS: Bilateral scattered benign calcified microhematomas. Occasional bilateral punctate benign m icrocalcifications. There is no evidence of suspicious mass, calcification, or architectural distorti on to suggest malignancy in either breast. There has been no suspicious interval change. IMPRESSION: 1. No mammographic evidence of malignancy. 2. Recommend routine screening mammography in one year. BI-RADS Category 2: Benign finding(s). Reviewed, dictated and finalized at location A.
== END 2021-10-19 08:51 | disposition home or self-care (01) ==
LOC: ANHIMG 08:52
PROVIDERS: PCP Family Medicine Adolescent Medicine; Visit Provider Student in an Organized Health Care Education/Training Program
DX: Z12.31 Encounter for screening mammogram for malignant neoplasm of breast (principal); Z78.0 Asymptomatic menopausal state; M85.88 Other specified disorders of bone density and structure, other site; M85.852 Other specified disorders of bone density and structure, left thigh
CPT/HCPCS: 77063; 77067; 77080

== ENCOUNTER 2022-09-17 08:32 | Outpatient (CLI) | payer OTHER, SELFPAY ==
--- NOTE | ~2022-09-17 | CT_ITS ---
CT of the Abdomen and Pelvis: Indication: Postprandial abdominal pain Technique: 2.5 mm axial scans were obtained through the abdomen and pelvis following intravenous adm inistration of 100 cc of Omnipaque 350. Dose reduction technique was used on this scan by utilizing a utomated exposure control and iterative reconstruction technique. The dose-length product (DLP) was 5 09.66 mGy-cm. Findings: Scans through the lung bases are unremarkable. The liver, spleen, pancreas, gallbladder, adrenals and kidneys are within normal limits. No aortic an eurysm or dissection. Celiac axis, bilateral renal arteries, and JENNIFER are widely patent. There is a fo pepe moderate to high-grade stenosis of the proximal SMA (axial image 50 for example). No lymphadenopa thy. No bowel obstruction or bowel wall thickening. There is no evidence to suggest acute appendicitis. Images through the pelvis are degraded by streak artifact from right hip arthroplasty. Urinary bladde r appears unremarkable. No pelvic mass seen. No ascites. 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 No bowel wall thickening or other signs/symptoms to indicate acute bowel ischemia. Reviewed, dictated and finalized at location . 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 No bowel wall thickening or other signs/symptoms to indicate acute bowel ischem ia.
[2022-09-17 09:08] LABS: Estimated Glomerular Filt Rate > 60
== END 2022-09-17 08:33 | disposition home or self-care (01) ==
PROVIDERS: PCP Family Medicine Adolescent Medicine; Visit Provider Nurse Practitioner
DX: R10.9 Unspecified abdominal pain (principal); R19.03 Right lower quadrant abdominal swelling, mass and lump
CPT/HCPCS: 74174; Q9967

== ENCOUNTER 2022-10-20 09:15 | Outpatient (CLI) | payer OTHER, SELFPAY ==
--- NOTE | ~2022-10-20 | MM_ITS ---
EXAMINATION: MM screening mina BI w karri HISTORY: Screening TECHNIQUE: Craniocaudal and mediolateral oblique 3-D tomosynthesis images were obtained and synthetic 2-D images were generated. CAD analysis was submitted and interpreted. COMPARISON: Comparison to multiple prior studies sequentially, with oldest reviewed study dated 05/17. BREAST PARENCHYMAL COMPOSITION: The breasts are extremely dense, which lowers the sensitivity of mamm ography FINDINGS: There is a new spiculated mass in the upper central aspect of the right breast, best seen o n MLO view. The right breast is stable without evidence for malignancy. IMPRESSION: 1. New left breast mass, upper central left breast, best seen on MLO and exaggerated CC view. 2. Additional mammographic views and possible breast ultrasound are recommended. BI-RADS Category 0: Incomplete: Needs additional imaging evaluation. Reviewed, dictated and finalized at location A. IMPRESSION: 1. New left breast mass, upper central left breast, best seen on MLO and exagge rated CC view. 2. Additional mammographic views and possible breast ultrasound are recommended . BI-RADS Category 0: Incomplete: Needs additional imaging evaluation.
== END 2022-10-20 09:16 | disposition home or self-care (01) ==
LOC: ANHIMG 09:21
PROVIDERS: PCP Family Medicine Adolescent Medicine
DX: Z12.31 Encounter for screening mammogram for malignant neoplasm of breast (principal); R92.8 Other abnormal and inconclusive findings on diagnostic imaging of breast
CPT/HCPCS: 77063; 77067

== ENCOUNTER 2022-10-26 03:46 | Day surgery (SDC) | payer OTHER, SELFPAY ==
[2022-10-11 13:53] VITALS: BMI 21.3
--- NOTE | 2022-10-25 14:40 | WPDANESEPPF ---
Anes - Initial Pre Proc Eval Procedure: Operation Date: 10/26/22 07:30 Proposed Procedures p Esophagogastroduodenoscopy & Colonoscopy - Bowen Lopez MD Date/Time: 10/25/22 14:40 Surgeon: Bowen Lopez MD Pre Op Diagnosis: GERD,Right Lower Quad Tenderness, Patient Data Age: 62 Gender: F Height: 1.68 m Weight: 60 kg Allergies Allergy/AdvReac Type Severity Reaction Status Date / Time No Known Allergies Allergy Verified 10/26/22 06:11 Home Medications Medication Instructions Recorded Confirmed Type light mineral oil-mineral oil (PF) 1 drp ophthalmic (eye) BID PRN Dry 01/01/20 10/26/22 History 0.5 %-0.5 % eye drops,dropperette Eye(S) (Retaine MGD (PF)) cholecalciferol (vitamin D3) 50 50 mcg PO BID 04/17/20 10/26/22 History mcg (2,000 unit) capsule conjugated estrogens 1.25 mg 1.25 mg PO DAILY 04/21/21 10/26/22 History tablet (Premarin) albuterol sulfate 90 mcg/actuation 2 inh inhalation Q4H PRN shortness 11/11/21 10/26/22 Rx aerosol inhaler of breath or wheezing #8.5 grams atorvastatin 20 mg tablet 20 mg PO DAILY #90 tabs 04/14/22 10/26/22 Rx Bifidobacterium infantis 4 mg 4 mg PO DAILY 07/21/22 10/26/22 History capsule (Align) ascorbic acid (vitamin C) 500 mg 500 mg PO DAILY 07/21/22 10/26/22 History capsule,extended release (Vitamin C) omega 6-fla-xiu-fish oil 60 mg-90 1 cap PO DAILY 07/21/22 10/26/22 History mg-500 mg capsule (Fish Oil) cetirizine 10 mg tablet (Zyrtec) 10 mg PO DAILY 08/26/22 10/26/22 History estradiol 10 mcg vaginal insert 10 mcg vaginal 2XW 08/26/22 10/26/22 History (Imvexxy Maintenance Pack) mecobalamin (vitamin B12) 1,000 1,000 mcg PO DAILY 08/26/22 10/26/22 History mcg chewable tablet omeprazole 40 mg capsule,delayed 40 mg PO DAILY #30 caps 09/09/22 10/26/22 Rx release zolpidem 10 mg tablet (Ambien) 10 mg PO QHS PRN insomnia #30 tabs 09/20/22 10/26/22 Rx linaclotide 72 mcg capsule 72 mcg PO QAM #90 caps 09/28/22 10/26/22 Rx (Linzess) Patient hx anesthesia problems: none Family hx anesthesia problems: none Results Review: All pre-operative results and documents have been reviewed as part of the pre-operative evaluation. [facility] Past Medical History Medical History (Updated 09/09/22 @ 08:59 by Sharyn Rob, MICHAEL) Abdominal bruit Acid reflux Acute vulvitis Arthritis Degenerative joint disease (DJD) of hip Family hx total abdominal hysterectomy/bilateral salpingo-oophorectomy Foot drop Gas bloat syndrome Generalized postprandial abdominal pain Globus sensation High cholesterol History of vaginal delivery x 2 Irritable bowel syndrome with constipation RLQ abdominal tenderness Vaginal dryness, menopausal Surgical History Surgical History History of breast biopsy (2013) History of hysterectomy History of tonsillectomy S/P total hip arthroplasty (12/2019) Family History Family History Grandparent Colon cancer Other Family history of cardiovascular disease Hypertension Social History Social History Smoking status: Never smoker Second hand tobacco smoke exposure: No Additional smoking assessment comments: DENIES ANY FORM OF TOBACCO/NICOTINE USE Alcohol intake: never Substance use: never Substance use type: does not use Lack of Transportation: No Lack of Food: Never True Current Housing: I Have Housing Concerned About Future Housing: No Difficulty Paying Gas/Electric Bills: No Difficulty Paying for Meds: No Currently Unemployed: No Difficulty w/ Childcare or Family Care: No Living arrangements: with family Occupation/Education: retired Gender identity (if verbalized by the patient): Female Sexual Orientation (if Verbalized by the Patient): Straight or Heterosexual Spiritual care concerns: No Agree to b
[2022-10-26 06:10] VITALS: BP 162/67; PULSE 77; RESP 18; TEMP 36.7; O2SAT 100; BMI 20.6
[2022-10-26] MEDS: LACTATED RINGERS 1,000 ML 150 ML IV CONT (06:29)
--- NOTE | 2022-10-26 07:44 | PM.HPGS ---
History of Present Illness History of Present Illness Consent: Risks, benefits, and alternatives have been discussed and questions answered. Patient agrees to proceed with procedure. Chief complaint: GERD,Right Lower Quad Tenderness, Narrative: aJmie Prasad is a 62 year old female Presents for both colonoscopy and EGD. Patient states that when she swallows she feels as though she needs to belch before she can swallow any additional intake. She states this happens with both liquids and solids. She patient referred for EGD today. She has been on a trial of a PPI agent for 1 month with no change in symptoms. Patient reports only maybe 3 occasions of heartburn in the past. Additionally patient complains of constipation. She states when she has not had a bowel movement for couple days she has rather vague right lower quadrant abdominal discomfort. Colonoscopy is recommended. She presents for that today. She has had no bleeding. Her weight has remained stable. Review of Systems Review of Systems: Review of systems noncontributory. [facility] Past Medical History Medical History (Updated 10/26/22 @ 07:47 by Bowen Lopez MD) Abdominal bruit Acid reflux Acute vulvitis Arthritis Degenerative joint disease (DJD) of hip Family hx total abdominal hysterectomy/bilateral salpingo-oophorectomy Foot drop Gas bloat syndrome Generalized postprandial abdominal pain Globus sensation High cholesterol History of vaginal delivery x 2 Irritable bowel syndrome with constipation RLQ abdominal tenderness Vaginal dryness, menopausal Surgical History Surgical History History of breast biopsy (2013) History of hysterectomy History of tonsillectomy S/P total hip arthroplasty (12/2019) Family History Family History Grandparent Colon cancer Other Family history of cardiovascular disease Hypertension Social History Social History Smoking status: Never smoker Second hand tobacco smoke exposure: No Additional smoking assessment comments: DENIES ANY FORM OF TOBACCO/NICOTINE USE Alcohol intake: never Substance use: never Substance use type: does not use Lack of Transportation: No Lack of Food: Never True Current Housing: I Have Housing Concerned About Future Housing: No Difficulty Paying Gas/Electric Bills: No Difficulty Paying for Meds: No Currently Unemployed: No Difficulty w/ Childcare or Family Care: No Living arrangements: with family Occupation/Education: retired Gender identity (if verbalized by the patient): Female Sexual Orientation (if Verbalized by the Patient): Straight or Heterosexual Spiritual care concerns: No Agree to blood products: Yes Meds Home Medications and Allergies Home Medications Medication Instructions Recorded Confirmed Type light mineral oil-mineral oil (PF) 1 drp ophthalmic (eye) BID PRN Dry 01/01/20 10/26/22 History 0.5 %-0.5 % eye drops,dropperette Eye(S) (Retaine MGD (PF)) cholecalciferol (vitamin D3) 50 50 mcg PO BID 04/17/20 10/26/22 History mcg (2,000 unit) capsule conjugated estrogens 1.25 mg 1.25 mg PO DAILY 04/21/21 10/26/22 History tablet (Premarin) albuterol sulfate 90 mcg/actuation 2 inh inhalation Q4H PRN shortness 11/11/21 10/26/22 Rx aerosol inhaler of breath or wheezing #8.5 grams atorvastatin 20 mg tablet 20 mg PO DAILY #90 tabs 04/14/22 10/26/22 Rx Bifidobacterium infantis 4 mg 4 mg PO DAILY 07/21/22 10/26/22 History capsule (Align) ascorbic acid (vitamin C) 500 mg 500 mg PO DAILY 07/21/22 10/26/22 History capsule,extended release (Vitamin C) omega 7-yyl-aro-fish oil 60 mg-90 1 cap PO DAILY 07/21/22 10/26/22 History mg-500 mg capsule (Fish Oil) cetirizine 10 mg tablet (Zyrtec) 10 mg PO DAILY 08/26/22 10/26/22 History estradiol 10 mcg
--- NOTE | 2022-10-26 07:50 | SUR.OPER ---
EGD start 740 end 743, Colonoscopy start 750
[2022-10-26 08:10] VITALS: BP 134/98; PULSE 72; RESP 25; O2SAT 100
[2022-10-26 08:20] VITALS: BP 149/82; PULSE 64; RESP 19; O2SAT 100
[2022-10-26 08:30] VITALS: BP 162/99; PULSE 67; RESP 24; O2SAT 100
== END 2022-10-26 08:40 | disposition home or self-care (01) ==
PROVIDERS: PCP Family Medicine Adolescent Medicine; Visit Provider Internal Medicine Gastroenterology
PROC: 0DJ08ZZ Inspection of Upper Intestinal Tract, Via Natural or Artificial Opening Endoscopic (ICD-10-PCS; CPT 43235; principal; 2022-10-26 07:30)
DX: Z12.11 Encounter for screening for malignant neoplasm of colon (principal); K64.8 Other hemorrhoids; R13.10 Dysphagia, unspecified; K21.9 Gastro-esophageal reflux disease without esophagitis; K58.1 Irritable bowel syndrome with constipation; E78.00 Pure hypercholesterolemia, unspecified; Z79.51 Long term (current) use of inhaled steroids
CPT/HCPCS: 45378; 43239; 43450; 87081; J2704; J7120

== ENCOUNTER 2022-11-12 07:59 | Outpatient (CLI) | payer OTHER, SELFPAY ==
--- NOTE | ~2022-11-12 | NM_ITS ---
EXAMINATION: NM hepatobiliary wo pharm DATE: 11/12/2022 11:58 INDICATION: Generalized abdominal pain. COMPARISON: CT abdomen and pelvis 09/17/2022 TECHNIQUE: 5.2 mCi Tc-99m mebrofenin (Choletec) was administered intravenously. Scintigraphic images of the abdomen were obtained for one hour. Then, the patient drank 8 oz Ensure, and imaging was cont inued for 60 minutes. FINDINGS: There is normal clearance of radiotracer from the blood pool. There is homogeneous tracer u ptake by the liver. Activity progresses to the bowel and gallbladder. Gallbladder ejection fraction (GBEF) was 89%. Note that with this technique, normal GBEF >= 33%. IMPRESSION: 1. Normal hepatobiliary scintigraphy. Reviewed, dictated and finalized at location A.
== END 2022-11-12 08:00 | disposition home or self-care (01) ==
PROVIDERS: PCP Family Medicine Adolescent Medicine; Visit Provider Nurse Practitioner Family
DX: R10.84 Generalized abdominal pain (principal)
CPT/HCPCS: 78226; A9537

== ENCOUNTER 2022-11-18 12:47 | Outpatient (CLI) | payer OTHER, SELFPAY ==
--- NOTE | ~2022-11-18 | MMUS_ITS ---
EXAMINATION: MM diagnostic mina LT w karri, US breast LT complete HISTORY: New spiculated mass reported in upper central left breast, best demonstrated on 10/20/2022 sc reening mammogram MLO view TECHNIQUE: Additional 3-D tomosynthesis images of the left breast were performed and synthetic 2-D im ages were generated. CAD analysis was submitted and interpreted. High resolution complete left breast ultrasound examination including all 4 quadrants and subareolar area was performed. COMPARISON: 10/20/2022 bilateral screening mammogram FINDINGS: MAMMOGRAPHIC FINDINGS: Irregular spiculated mass is suggested in the upper central left breast at mid to posterior depth. ULTRASOUND: 12:00 6 cm from nipple: There is an irregular poorly circumscribed hypoechoic cortical approximate 12 x 7 x 19 mm mass with posterior shadowing, very suspicious. Ultrasound-guided biopsy is recommended. 12:00 1 cm from nipple: 2.8 x 4.4 x 3 mm sonolucent lesion without internal vascularity or posterior shadowing 2:00 8 cm from nipple: Parallel circumscribed 6 x 2.7 x 5 mm sonolucency without internal vascularity or posterior shadowing 9:00 1 cm from nipple: Parallel circumscribed hypoechoic 4 x 2 x 4.7 mm lesion without posterior shad owing IMPRESSION: 1. Irregular poorly circumscribed hypoechoic suspicious 12 x 7 x 19 mm mass with posterior shadowing, left breast 12:00 6 cm from nipple 2. Ultrasound-guided biopsy of left breast 12:00 lesion is recommended BI-RADS category 4, suspicious findings. Dr. Winters telephoned the report and ultrasound-guided biopsy recommendation of left breast 12:00 lesio n on 11/18/2022 at 1450 hours to voicemail at [phone]. Reviewed, dictated and finalized at location A. IMPRESSION: 1. Irregular poorly circumscribed hypoechoic suspicious 12 x 7 x 19 mm mass wit h posterior shadowing, left breast 12:00 6 cm from nipple 2. Ultrasound-guided biopsy of left breast 12:00 lesion is recommended BI-RADS category 4, suspicious findings. Dr. Winters telephoned the report and ultrasound-guided biopsy recommendation of l eft breast 12:00 lesion on 11/18/2022 at 1450 hours to voicemail at [phone] . IMPRESSION: 1. Irregular poorly circumscribed hypoechoic suspicious 12 x 7 x 19 mm mass wit h posterior shadowing, left breast 12:00 6 cm from nipple 2. Ultrasound-guided biopsy of left breast 12:00 lesion is recommended BI-RADS category 4, suspicious findings. Dr. Winters telephoned the report and ultrasound-guided biopsy recommendation of l eft breast 12:00 lesion on 11/18/2022 at 1450 hours to voicemail at [phone] .
== END 2022-11-18 12:48 | disposition home or self-care (01) ==
PROVIDERS: PCP Family Medicine Adolescent Medicine
DX: R92.8 Other abnormal and inconclusive findings on diagnostic imaging of breast (principal)
CPT/HCPCS: 76641; 77061; 77065; G0279

== ENCOUNTER 2023-01-31 10:25 | Outpatient (CLI) | payer OTHER, SELFPAY ==
--- NOTE | ~2023-01-31 | MR_ITS ---
MR breast BI wo/w con 02/02/2023 08:38 OVER HAULER HELPER INDICATION: Breast cancer. TECHNIQUE: MRI of the breasts perform using standard protocol pre-and post IV contrast with the follo wing sequences: Axial T2 STIR, axial T1, axial vibrant T1 with fat suppression precontrast and multip hasic postcontrast. COMPARISON: Diagnostic mammogram and ultrasound dated 11/18/2022 FINDINGS: There are no abnormalities on the precontrast sequences. There is minimal background parenc hymal enhancement. No enhancing lesions following contrast administration. No areas of enhancement meeting threshold criteria on CAD analysis. No evidence of signal abnormalities in the axillary or i nternal mammary node distributions. LEFT BREAST: No signal abnormalities on precontrast sequences. There is minimal background parenchym al enhancement. In the upper inner quadrant of the left breast at 11:00, middle third there is an irr egular shaped mass with rapid washout enhancement measuring 1.6 x 1.5 x 1.3 cm. There are a few addit ional foci of enhancement in the left breast measuring 4 mm or less, too small to characterize, likel y background or intramammary lymph nodes. No significant axillary or internal mammary lymph node enla rgement or enhancement. IMPRESSION: 1: Right breast: Negative. No evidence of malignancy. BI-RADS category 1. Recommend annual mammo graphy follow-up. 2: Left breast: Irregular shaped 1.6 cm mass located at 11:00, 5.5 cm posterior to the nipple, middl e third. There is associated rapid washout enhancement, concerning for malignancy. No abnormal lympha denopathy. Recommendation: Ultrasound-guided left breast biopsy if not already performed.. BI-RADS CATEGORY 4-SUSPICIOUS ABNORMALITY Reviewed, dictated and finalized at location B. HAULER HELPER IMPRESSION: 1: Right breast: Negative. No evidence of malignancy. BI-RADS category 1. Recommend annual mammography follow-up. 2: Left breast: Irregular shaped 1.6 cm mass located at 11:00, 5.5 cm posterio r to the nipple, middle third. There is associated rapid washout enhancement, c oncerning for malignancy. No abnormal lymphadenopathy. Recommendation: Ultrasound-guided left breast biopsy if not already performed.. BI-RADS CATEGORY 4-SUSPICIOUS ABNORMALITY
== END 2023-01-31 10:26 | disposition home or self-care (01) ==
DX: C50.912 Malignant neoplasm of unspecified site of left female breast (principal); Z17.0 Estrogen receptor positive status [ER+]; R92.333 Mammographic heterogeneous density, bilateral breasts
CPT/HCPCS: 77049; A9577; C8908

== ENCOUNTER 2023-10-25 14:02 | Outpatient (CLI) | payer OTHER, SELFPAY ==
--- NOTE | ~2023-10-25 | MM_ITS ---
EXAMINATION: MM screening mina BI w karri HISTORY: Screening TECHNIQUE: Craniocaudal and mediolateral oblique 3-D tomosynthesis images were obtained and synthetic 2-D images were generated. CAD analysis was submitted and interpreted. COMPARISON: Comparison to multiple prior studies sequentially, with oldest reviewed study dated 03/2019. BREAST PARENCHYMAL COMPOSITION: Dense: The breasts are heterogeneously dense, which may obscure small masses FINDINGS: There is no evidence of suspicious mass, calcification, or architectural distortion to sugg est malignancy in either breast. There has been no suspicious interval change. IMPRESSION: 1. No mammographic evidence of malignancy. 2. Recommend routine screening mammography in one year. BI-RADS Category 1: Negative Reviewed, dictated and finalized at location B.
== END 2023-10-25 14:03 | disposition home or self-care (01) ==
DX: Z12.31 Encounter for screening mammogram for malignant neoplasm of breast (principal)
CPT/HCPCS: 77063; 77067

== ENCOUNTER 2023-12-26 08:53 | Outpatient (CLI) | payer OTHER, SELFPAY ==
--- NOTE | ~2023-12-26 | DEXA_ITS ---
Bone Density Report Name: YANNICK CONTRERAS Age: 63 Sex: Female Ethnicity: White Date of : 1960 Indication: osteopenia; height loss; inflammatory bowel disease; asthma or emphysema; hysterectomy; Referring Provider: UNKNOWN, UNKNOWN Study: Bone densitometry was performed. Exam Date: December 26, 2023 Accession number: [id number] Bone Density: Region BMD T-score Z-score Classification AP Spine(L1-L4) 0.832 -2.0 -0.2 Osteopenia Femoral Neck (Left) 0.704 -1.3 0.2 Osteopenia Total Hip (Left) 0.771 -1.4 -0.2 Osteopenia World Health Organization criteria for BMD impression classify patients as: Normal (T-score at or above -1.0), Osteopenia (T-score between -1.0 and -2.5), or Osteoporosis (T-score at or below -2.5). 10-year Fracture Risk(1): Major Osteoporotic Fracture 7.8% Hip Fracture 0.7% Reported Risk Factors: [place] (), Neck BMD=0.704, BMI=22.2 (1) FRAX(R) Version 3.08. Fracture probability calculated for an untreated patient. Fracture probability may be lower if the patient has received treatment. Previous Exams: Region Exam Age BMD T-score BMD Change BMD Change Date g/cm2 vs Baseline vs Previous AP Spine (L1-L4) 12/26/2023 63 0.832 -2.0 -0.118 (-12.5% -0.089 (-9.6%) 10/19/2021 61 0.921 -1.1 -0.030 (-3.1%) -0.030 (-3.1%) 04/24/2013 52 0.951 -0.9 Total Hip(Left) 12/26/2023 63 0.771 -1.4 -0.099 (-11.4% -0.081 (-9.5%) 10/19/2021 61 0.852 -0.7 -0.019 (-2.2%) 0.048 (6.0%)* 08/06/2019 59 0.804 -1.1 -0.067 (-7.7%) -0.009 (-1.1%) 05/17/2017 57 0.812 -1.1 -0.058 (-6.7%) -0.074 (-8.3%) 05/07/2015 54 0.886 -0.5 0.016 (1.8%)# 0.016 (1.8%)# 04/24/2013 52 0.870 -0.6 *Denotes significance at 95% confidence level, LSC for AP Spine = 0.022 g/cm2, LSC for Total Hip = 0.027 g/cm2 # Denotes dissimilar scan types or analysis methods Clinical Information Provided by Patient: Has used the following medications: Vitamin D, Calcium Has the following medical conditions: Asthma or Emphysema, Inflammatory bowel diseases, Hysterectomy Patient maximum height was 68 Onset of menses at age 12 Number of children 2 Impression: The patient has low bone mass, based on the Total Spine T-score. The patient has an estimated ten-year risk of hip fracture of 0.7% and an estimated ten-year risk of major fracture of 7.8%, based on the WHO FRAX algorithm. The BMD for the AP Spine (L1-L4) decreased, changing by -9.6% since the last DXA exam. The BMD for the Total Hip(Left) decreased,
== END 2023-12-26 08:54 | disposition home or self-care (01) ==
LOC: ANHIMG 08:58
DX: C50.912 Malignant neoplasm of unspecified site of left female breast (principal); Z17.0 Estrogen receptor positive status [ER+]; D64.9 Anemia, unspecified; R92.333 Mammographic heterogeneous density, bilateral breasts; L03.818 Cellulitis of other sites; Z78.0 Asymptomatic menopausal state; M85.88 Other specified disorders of bone density and structure, other site; M85.852 Other specified disorders of bone density and structure, left thigh
CPT/HCPCS: 77080

== ENCOUNTER 2024-10-25 09:51 | Outpatient (CLI) | payer MEDICARE, OTHER, SELFPAY ==
--- NOTE | ~2024-10-25 | MM_ITS ---
EXAMINATION: MM screening mina BI w karri HISTORY: Screening mammogram TECHNIQUE: Craniocaudal and mediolateral oblique 3-D tomosynthesis images were obtained and synthetic 2-D images were generated. CAD analysis was submitted and interpreted. COMPARISON: 10/25/2023, 11/18/2022, 10/20/2022, 10/19/2021 BREAST PARENCHYMAL COMPOSITION:Dense: The breasts are extremely dense, which lowers the sensitivity of mammography. FINDINGS: No suspicious mass, calcification, or architectural distortion are identified in either breast to suggest malignancy. There has been no suspicious interval change. IMPRESSION: No mammographic evidence of malignancy. Recommend routine screening mammography in one year. BI-RADS Category 1: Negative Reviewed, dictated and finalized at location .
--- OUTSIDE RECORDS SUMMARY | 2024-10-25 10:27 | XMS_ITS | Encounter Summary ---
Author Organization [facility] Address [address] [place] [address] Phone Care Team Providers Care Feed And Farm Management Adviser Name Role Phone Akshat Castillo DO Primary Care Provider [phone] Song Ledesma MD Unavailable [phone] Dominik Thorne MD Unavailable Som Moeller MD Unavailable [phone] Reason for Visit * Reason Onset Date Comments Medication Refill 07/25/2024 Anastrozole RF request Encounter Details Date Type Department Care Team (Late st Contact Info) Description 07/25/2024 Refill [facility] [address] [place] [address] [place] [address] Dominik Thorne MD [address] [place] [address] [place] [address] Medication Refill (Anastrozole RF request) Social History Tobacco Use Types Packs/Day Years Used Date Smoking Tobacco: Never Passive Smoke Exposure: Never Smokeless Tobacco: Never Alcohol Use Standard Drinks/Week Comments Not Currently 0 (1 standard drink = 0.6 oz pur e alcohol) Comments No Sex and Gender Information Value Date Recorded Sex Assigned at Female 01/19/2023 6:33 AM COMMODITY BUYER Legal Sex Female 12:38 AM CDT Gender Identity Female 01/19/2023 6:33 AM COMMODITY BUYER Sexual Orientation Not on file documented as of this encounter Miscellaneous Notes * Telephone Encounter - Dayami Guerrero LPN - 07/25/2024 2:17 PM CDT Anastrozole RF request. documented in this encounter Plan of Treatment Upcoming Encounters Date Type Department Care Team (Late st Contact Info) Description 10/30/2024 1:15 PM CDT Lab [address] [place] [address] Lab, [place] [place] 10/30/2024 1:45 PM CDT Office Visit [address] [place] [address] Dominik Thorne MD [address] [place] [address] [place], [place] [id number] [phone] documented as of this encounter Visit Diagnoses Not on filedocumented in this encounter Care Teams Feed And Farm Management Adviser Relationship Specialty Start Date End Date Akshat Castillo DO PCP - General Family Medicine 01/19/23 Song Ledesma MD [address] [id number] Referring Provider General Surgery 01/19/23 Dominik Thorne MD [address] [place] [address] [place], [place] [id number] [phone] Consulting Physician Oncology 01/19/23 Som Moeller MD [address] [place] [address] [address] [place], [place] [id number] [phone] Consulting Physician Radiation Oncology 04/26/23 documented as of this encounter
--- OUTSIDE RECORDS SUMMARY | 2024-10-25 10:27 | XMS_ITS | Encounter Summary ---
Author Organization [facility] Address [address] [place] [address] Phone Care Team Providers Care Zinc Chloride Operator Name Role Phone Akshat Castillo DO Primary Care Provider [phone] Encounter Details Date Type Department Care Team (Late st Contact Info) Description 09/14/2024 Telephone [facility] [address] [place], [place] [address] Brionna Amos APRN [address] [place], [place] [id number] Social History Tobacco Use Types Packs/Day Years Used Date Smoking Tobacco: Never Assessed Comments Unknown Sex and Gender Information Value Date Recorded Sex Assigned at Not on file Legal Sex Female 3:04 PM CDT Gender Identity Female 10/17/2023 9:49 AM CDT Sexual Orientation Straight 10/17/2023 9: 49 AM CDT documented as of this encounter Miscellaneous Notes * Telephone Encounter - Brionna Amos APRN - 09/14/2024 1:16 PM CDT Order signed and returned to nursing station to be faxed to DME * Telephone Encounter - Rick Fulton LPN - 09/14/2024 11:39 AM CDT Heron Chaidezmaegan Received request for signature for CPAP supplies to fulfill insurance requirements. Placed in provider's folder for review and signature. AMBROCIO:06/07/2024 documented in this encounter Plan of Treatment Not on file documented as of this encounter Visit Diagnoses Not on filedocumented in this encounter Care Teams Zinc Chloride Operator Relationship Specialty Start Date End Date Akshat Castillo DO [address] [place] [address] PCP - General Family Medicine 06/10/23 documented as of this encounter
--- OUTSIDE RECORDS SUMMARY | 2024-10-25 10:27 | XMS_ITS | Encounter Summary ---
Author Organization [facility] Address [address] [place] [address] Phone Care Team Providers Care Liquefaction Plant Operator Name Role Phone Akshat Castillo DO Primary Care Provider [phone] Song Ledesma MD Unavailable [phone] Dominik Thorne MD Unavailable Som Moeller MD Unavailable [phone] Reason for Visit * Reason Onset Date Comments breast update 08/02/2023 Encounter Details Date Type Department Care Team (Late st Contact Info) Description 08/02/[address] [facility] [address] [place] [address] [place] [address] Dominik Thorne MD [address] [place] [id number] breast update Social History Tobacco Use Types Packs/Day Years Used Date Smoking Tobacco: Never Passive Smoke Exposure: Never Smokeless Tobacco: Never Alcohol Use Standard Drinks/Week Comments Not Currently 0 (1 standard drink = 0.6 oz pur e alcohol) Comments No Sex and Gender Information Value Date Recorded Sex Assigned at Female 01/19/2023 6:33 AM BOWLING BALL GRADER AND MARKER Legal Sex Female 12:38 AM CDT Gender Identity Female 01/19/2023 6:33 AM BOWLING BALL GRADER AND MARKER Sexual Orientation Not on file documented as of this encounter Miscellaneous Notes * Telephone Encounter - Dayami Guerrero LPN - 08/03/2023 11:07 AM CDT I called Jamie with Dr Thorne's recommendations. She voiced understanding. She is going to call us in 1week with an update concerning her breast cellulitis. * Telephone Encounter - Dominik Thorne MD - 08/02/2023 6:00 PM CDT Doing the bone density in 2023 is fine. Have pt keep us posted about the left breast cellulitis. * Telephone Encounter - Ling Jones. - 08/02/2023 11:16 AM CDT Per [facility] Bone Density Scan Please complete by 10/21/2023 Return for pt to call for update on cellultis of left breast Pt is scheduled for the Dexa scan at [facility] in [place] They could not do it until Jan 12 there. Is that OK or need sooner in Oct at [facility] ? * Telephone Encounter - Dayami Guerrero LPN - 08/02/2023 10:42 AM CDT Jamie called with an update about her breast cellulitis. She recently saw her PCP and her clindamycin was extended for another week. She also received a Rocephin injection. Her left breast cellulitismeasures 5x6 cm. It is still red and swollen but it is getting better. documented in this encounter Plan of Treatment Upcoming Encounters Date Type Department Care Team (Late st Contact Info) Description 10/30/2024 1:15 PM CDT Lab [address] [place] [address] Perri Baker 10/30/2024 1:45 PM CDT Office Visit [facility] [address] [place] [address] [place] [address] Dominik Thorne MD [address] [place] [address] [place], [place] [id number] [phone] documented as of this encounter Visit Diagnoses Not on filedocumented in this encounter Care Teams Liquefaction Plant Operator Relationship Specialty Start Date End Date Akshat Castillo DO PCP - General Family Medicine 01/19/23 Song Ledesma MD [address] [id number] Referring Provider General Surgery 01/19/23 Dominik Thorne MD [address] [place] [address] [place] [address] [phone] Consulting Physician Oncology 01/19/23 Som Moeller MD [address] [place] [address] [place] [phone] Consulting Physician Radiation Oncology 04/26/23 documented as of this encounter
--- OUTSIDE RECORDS SUMMARY | 2024-10-25 10:28 | XMS_ITS | Clinical Summary ---
Author Organization [facility] Address [address] [facility] [place] [address] Care Team Providers Care Hotel Associate Name Role Phone Ar Felton MD Primary Care Provider + Source Comments [facility],non-owned Affiliates and Associated Physician Practices is amultiple site organization consisting of ambulatory clinics and hospital sitesin [place], [place], [place] and [place]. This disclosure is being madepursuant to the Care Everywhere program and may not contain all information available regarding this patient. Last updated 17.[facility] Allergies No known active allergies Medications * Be aware that medications may not be up to date on this document. Alwaysverify current medications with the patient. pantoprazole EC (PROTONIX) 40 MG tablet Take 40 mg by mouth once daily Active estradiol (ESTRACE) 0.5 MG tablet Take 2 mg by mouth once daily Active progesterone 200 mg SUPP Insert into the vagina 2 times daily Active Ftxuusj-Gbmgc-Nu dh-GmmxF-UVcbs (MELATONIN + L-THEANINE PO) Take 25 mg by mouth Active Vitamins A & D (VITAMIN A & D) 5000-400 UNITS CAPS Take 5,000 Units by mouth every other day Active DHEA 10 MG Take 10 mg by mouth once daily Active Probiotic Product (PROBIOTIC DAILY PO) Take 1 tablet by mouth once daily Active fluconazole (DIFLUCAN) 100 MG tabletIndication s:Antibiotic-ind uced yeast infection Take 1 tablet by mouth once daily 15 tablet 8 Active Additional Information Patient not taking.Reported on 12/14/2017 XIFAXAN 550 MG tabletIndication s:Small intestinal bacterial overgrowth TAKE 1 TABLET BY MOUTH THREE TIMES DAILY FOR 14 DAYS 42 tablet 8 Active Additional Information Patient not taking.Reported on 12/14/2017 fluconazole (DIFLUCAN) 150 MG tablet 1 8 Active nortriptyline (PAMELOR) 25 MG capsuleIndicatio ns:Gastric polyps Take 1 capsule by mouth at bedtime 90 capsule 1 8 Active LINZESS 290 MCG capsuleIndicatio ns:Chronic idiopathic constipation TAKE 1 CAPSULE DAILY BEFORE BREAKFAST ON AN EMPTY STOMACH AT LEAST 30 MINUTES PRIOR TO FIRST MEAL OF THE DAY 90 capsule 1 9 Active Family History Medical History Relation Name Comments CVA Father Diabetes - Type 2 Father High Cholesterol Father Hypertension Father Cancer - Colon Maternal Grandmother High Cholesterol Mother Hypertension Mother Relation Name Status Comments Father Alive Maternal Grandmother Mother Alive Social History Tobacco Use Types Packs/Day Years Used Date Smoking Tobacco: Never Smokeless Tobacco: Never Alcohol Use Standard Drinks/Week Comments No 0 (1 standard drink = 0.6 oz pur e alcohol) Comments No Sex and Gender Information Value Date Recorded Sex Assigned at Not on file Legal Sex Female 6:19 PM HOSPITAL MORTICIAN Gender Identity Not on file Sexual Orientation Not on file Last Filed Vital Signs Vital Sign Reading Time Taken Comments Blood Pressure 118/66 02/08/2018 6:52 AM HOSPITAL MORTICIAN Pulse 65 12/14/2017 1:09 PM CDT Temperature - - Respiratory Rate 21 12/14/2017 1:09 PM CDT Oxygen Saturation 100% 12/14/2017 1:09 PM CDT Inhaled Oxygen Concentration - - Weight 53.9 kg (118 lb 12.8 oz) 02/08/2018 6:52 AM HOSPITAL MORTICIAN Height 167.6 cm (5' 6) 02/08/2018 6:52 AM HOSPITAL MORTICIAN Body Mass Index 19.17 02/08/2018 6:52 AM HOSPITAL MORTICIAN Plan of Treatment Health Maintenance Due Date Last Done Comments BONE DENSITY TESTING 1960 COLOGUARD (AGES 45-75) - COL ON CA SCREENING 1960 COLON MONITORING 1959 COLONOSCOPY - COLON CA SCREENING 1959 CT COLONOGRAPHY - COLON CA SCREENING 1960 Colorectal Cancer Screening 1960 FIT - COLON CA SCREENING 1959 FLEX SIG - COLON CA SCREENING 1960 LIPID TESTING 1960 MAMMOGRAM 1960 HIV SCREENING 05/15/1974 HEPATITIS C SCREENING 05/11/1977 DTAP/TDAP/TD VACCINES (1 - Tdap) 05/15/1978 PNEUMOCOCCAL VACCINE 50+ (1 of 1 - PCV) 05/15/2009 ZOSTER VACCINE (1 of 2) 05/15/2009 COVID-19 VACCINE (1 - 2023-2 5 season) 2023 DEPRESSION SCREENING 03/07/2024 INFLUENZA VACCINE (#1) 2024 Respiratory Syncytial Virus (RSV) Vaccine Pt: or over 60 yrs (1 - 1-dose 75+ series) 05/15/2034 HEPATITIS B VACCINE Aged Out No longe r eligible based on patient's age to complete this topic HIB VACCINE Aged Out No longer eligi ble based on patient's age to complete this topic HPV VACCINE Aged Out No longer eligi ble based on patient's age to complete this topic MENINGOCOCCAL (Group B) VACC INE SHARED DECISION-MAKING Aged Out No longer eligibl e based on patient's age to complete this topic MENINGOCOCCAL GROUPS A/C/Y/W VACCINE Aged Out No longer eligible b ased on patient's age to complete this topic Insurance Care Teams Hotel Associate Relationship Specialty Start Date End Date Ar Felton MD [address] [place] [phone] PCP - General Family Medicine 04/26/17
--- OUTSIDE RECORDS SUMMARY | 2024-10-25 10:28 | XMS_ITS | Clinical Summary ---
Author Organization [facility] [place] Address [address] [place] [address] Care Team Providers Care Phlebotomy Specialist Name Role Phone Ar Felton MD Primary Care Prov ider Allergies No known active allergies Medications Linzess 290 mcg capsule TAKE 1 CAPSULE DAILY BEFORE BREAKFAST ON AN EMPTY STOMACH AT LEAST 30 MINUTES PRIOR TO FIRST MEAL OF THE DAY 9 Active zolpidem (AMBIEN) 10 mg tablet 3 Active amLODIPine (NORVASC) 10 mg tablet Take 1 tablet (10 mg total) by mouth daily Active omeprazole (PriLOSEC) 40 mg capsule Take 1 capsule (40 mg total) by mouth daily Active anastrozole (ARIMIDEX) 1 mg tablet Take by mouth daily Active venlafaxine 150 mg tablet extended release 24hr 24 hr tablet Take 1 tablet (150 mg total) by mouth daily Active ezetimibe (ZETIA) 10 mg tablet Take 1 tablet (10 mg total) by mouth daily Active Bifidobacterium infantis (ALIGN) 4 mg capsule 1 capsule (4 mg total) Active cyanocobalamin (Vitamin B-12) 500 mcg tabletIndicatio ns:Prevention of Vitamin B12 Deficiency Take 1 tablet (500 mcg total) by mouth daily Active ascorbic acid (ascorbic acid with patric hips) 500 mg tablet,chewable Acti ve calcium citrate-vitamin D3 200 mg-3.125 mcg (125 unit) tablet Take by mouth Active [id number] sh oil-vit D3 300-1,000-1,000 mg-mg-unit capsule Take by mouth Active cetirizine (ZyrTEC) 10 mg tablet Take 1 tablet (10 mg total) by mouth daily Active calcium citrate 250 mg calcium tablet tablet Take by mouth Ac tive turmeric root extract 500 mg capsule Take by mouth Active Active Problems Problem Noted Date Diagnosed Date Primary hypertension 07/15/2023 Assessment & Plan (08/12/2023 12:41 PM CDT): Stable continue amlodipine 10 mg. Assessment & Plan (07/15/2023 11:36 AM CDT): Stable continue amlodipine 10 mg. 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 Patient's abdominal symptoms not associated with mesenteric ischemia. Follow-up 6 months with a repeat mesenteric duplex Assessment & Plan (08/12/2023 12:41 PM CDT): CT abdomen pelvis with moderate to high-grade stenosis of the SMA. Celiac and JENNIFER are widely patent, mesenteric duplex evaluation of the celiac I think was inaccurate.. Overall single-vessel mesenteric disease I do not think would explain her symptoms. She is following up with her GI specialist here within the next month. We will follow up with me in 6 months with repeat mesenteric duplex. Assessment & Plan (07/15/2023 11:36 AM CDT): Severe stenosis of the SMA and celiac on duplex. 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 She is likely going to need a mesenteric angiogram with possible revascularization. We will plan for follow-up in 1-2 weeks. Assessment & Plan (12/27/2022 3:59 PM CDT): Impression: Patient has greater than 70% stenosis noted to the celiac access and SMA seen on mesenteric duplex. She complains of postprandial pain and occasional food avoidance. Patient denies any unintentional weight loss in the last 6 months to a year. Plan: Discussed patient and plan of care with Dr. Morgan Arvizu -no surgical interventions indicated at this time. -recommend patient to follow-up in 6 months for re-evaluation with mesenteric duplex. Assessment & Plan (11/23/2022 2:48 PM CDT): High-grade stenosis of the SMA based on CTA done at [facility], I have requested a copy of the imaging so that I can further review myself. Based on the interpretation the celiac and JENNIFER are patent, single-vessel mesenteric disease unlikely to be the cause of her abdominal pain. We will check a mesenteric due under evaluation. I have recommended continuing her workup with her GI physician. Will plan for repeat evaluation in 2-3 weeks. Mixed hyperlipidemia 11/23/2022 Assessment & Plan (08/12/2023 12:41 PM CDT): Stable continue Lipitor 20 mg. Assessment & Plan (07/15/2023 11:36 AM CDT): Stable continue Lipitor 20 mg. Assessment & Plan (12/27/2022 3:59 PM CDT): Impression: Chronic and stable. Plan: Continue atorvastatin. Assessment & Plan (11/23/2022 2:48 PM CDT): Stable continue Lipitor 20 mg. Surgical History Surgery Date Site/Laterality Comments TOTAL HIP ARTHROPLASTY 03/07/2019 - 03/06/2020 HEEL SPUR SURGERY Right Family History Medical History Relation Name Comments Heart attack Paternal Grandfather Relation Name Status Comments Paternal Grandfather Social History Tobacco Use Types Packs/Day Years Used Date Smoking Tobacco: Never Smokeless Tobacco: Never Tobacco Cessation:Counseling Given: No Comments Unknown Sex and Gender Information Value Date Recorded Sex Assigned at Not on file Legal Sex Female 9:50 AM DELIVERY LEAD Gender Identity Not on file Sexual Orientation Not on file Obstetrics History Last Filed Vital Signs Vital Sign Reading Time Taken Comments Blood Pressure 144/84 02/15/2024 9:19 AM DELIVERY LEAD Pulse 82 02/15/2024 9:19 AM DELIVERY LEAD Temperature - - Respiratory Rate - - Oxygen Saturation 100% 02/15/2024 9:19 AM DELIVERY LEAD Inhaled Oxygen Concentration - - Weight 61.7 kg (136 lb) 02/15/2024 9:19 AM DELIVERY LEAD Height 167.6 cm (5' 6) 02/15/2024 9:19 AM DELIVERY LEAD Body Mass Index 21.95 02/15/2024 9:19 AM DELIVERY LEAD Plan of Treatment Health Maintenance Due Date Last Done Comments Cervical Cancer Screening 1959 Colon Cancer Screening-Colonoscopy 1959 Depression Screening 1959 Fall Risk Assessment 1959 Hepatitis C Screening 1959 Hepatitis B Screening 05/15/1977 Pneumococcal vaccine 65+ (1 of 2 - PCV) 05/15/1978 Zoster Vaccine (1 of 2) 05/15/1978 Covid-19 Vaccine (3 - Modern a risk series) 07/18/2020 06/20/2020, 05/23/2020 Well Visit 65+ 05/15/2024 Breast Cancer Screening-Mammogram 10/24/2024 024 Influenza Vaccine (#1) 2024 , 01/10/2023, 01/04/2018, Additional history exists Osteoporosis Screening-Bone Density Scan 12/25/2025 12/26/2023, 12/26/2023, 07/26/2023, Additional history exists DTaP/Tdap/Td Vaccine (2 - Td or Tdap) 11/13/2033 11/14/2023 Insurance [employer] Care Teams Phlebotomy Specialist Relationship Specialty Start Date End Date Ar Felton MD [address] [place] [address] PCP - General Family Medicine 11/09/22
--- OUTSIDE RECORDS SUMMARY | 2024-10-25 10:28 | XMS_ITS | Clinical Summary ---
Author Organization [facility] Address [address], [address] [place] [address] Phone Care Team Providers Care Circus Rider Name Role Phone Akshat Castillo DO Primary Care Provider [phone] Song Ledesma MD Unavailable [phone] Dominik Thorne MD Unavailable Smo Moeller MD Unavailable [phone] Allergies Active Allergy Reactions Criticality Noted Date Comments Gluten Meal Diarrhea 02/24/2023 Dairy and Gluten- Irritable Bowel Syndrome Lisinopril Other (see Comments) Low 05/15/2024 Trazodone Other (see Comments) 12/23/2022 tachycardia Medications omeprazole (PriLOSEC) 40 MG CAPSULE DELAYED RELEASE Take 40 mg by mouth 2 times daily. 11/02/2022 Active Linzess 290 MCG Capsule Take 290 mcg by mouth every morning. 01/16/2023 Active Probiotic Product (PROBIOTIC DAILY PO) Take 1 Tablet by mouth daily. Active fish oil-omega-3 fatty acids 1000 MG Capsule Take by mouth daily. 01/07/2023 Active ascorbic acid (ASCORBIC ACID) 500 MG Tablet daily. 01/07/2023 Activ e Cholecalciferol (Vitamin D3) 1000 units Capsule daily. 01/07/2023 Active Cyanocobalamin (Vitamin B-12 CR) 1000 MCG Tablet Controlled Release Take by mouth daily. Active cetirizine (ZyrTEC Allergy) 10 MG Tablet Take 10 mg by mouth. 04/12/2023 Active amLODIPine (NORVASC) 10 MG Tablet Take 10 mg by mouth daily. 05/24/2023 Active Calcium Carbonate (CALCIUM 500 PO) Take 250 mg by mouth daily. Active ezetimibe (ZETIA) 10 MG Tablet Take 1 Tablet by mouth daily. Active anastrozole (ARIMIDEX) 1 MG Tablet Take 1 Tablet by mouth nightly 90 Tablet 3 07/25/2024 Active venlafaxine (EFFEXOR-XR) 150 MG CAPSULE SR 24 HR Take 150 mg by mouth daily. Active atorvastatin (LIPITOR) 80 MG Tablet Take 80 mg by mouth daily. Active ramelteon (ROZEREM) 8 MG Tablet TAKE 1 TABLET(8 MG) BY MOUTH DAILY AT BEDTIME 08/01/2024 Active Active Problems Problem Noted Date Diagnosed Date Insomnia 05/15/2024 Irritable bowel syndrome 05/15/2024 Osteopenia 05/15/2024 Vitamin D deficiency 05/15/2024 Elevated blood pressure reading 02/14/2024 Basal cell carcinoma of nose 01/28/2024 Neoplasm of uncertain behavior of skin Seborrheic keratosis 01/24/2024 Solar degeneration 01/23/2024 Primary hypertension 07/15/2023 Malignant neoplasm of overla pping sites of left breast in female, estrogen receptor positive 04/27/2023 Mixed hyperlipidemia 11/23/2022 Superior mesenteric artery stenosis 11/23/2022 Encounters Date Type Department Care Team Description 08/07/2024 1:45 PM CDT Office Visit [address] [place] [address] Deja Chiang, SPECIAL SKILLS OFFICER, DELINEATOR Malignant neoplasm of left breast in female, estrogen receptor positive, unspecified site of breast (HCC) (Primary Dx); Heterogeneously dense tissue of both breasts on mammography; Osteopenia determined by x-ray; Normochromic normocytic anemia; Postmenopausal 08/07/2024 1:15 PM CDT Lab [address] [place] [address] Perri Baker Malignant neoplasm of left breast in female, estrogen receptor positive, unspecified site of breast (HCC); Heterogeneously dense tissue of both breasts on mammography; Osteopenia determined by x-ray; Normochromic normocytic anemia; Postmenopausal 08/07/2024 Travel 07/25/[address] [place] [address] Dominik Thorne MD Medication Refill (Anastrozole RF request) from Last 3 Months Immunizations Immunization Administration Dates Next Due Influenza Vaccine, Quadrivalent, PF 01/10/2023,1 Influenza Vaccine,unspecified Formulation 2017,01/16/2012 Influenza, Seasonal, Injectable, Undefined 01/15 Influenza,Split Virus,Trivalent,Injectable,PF Pneumococcal conjugate PCV20 , polysaccharide [id number] conjugate, adjuvant, PF 01/25/2023 Sars-cov-2 Covid-19 Dna Non- us Vaccine (Zydus Cadila, Zyc) 06/20/2020,05/23/2020 TDAP Vaccine 11/14/2023 Family History Medical History Relation Name Comments Parkinsonism Child 1 42 Diabetes Father 89 Heart Disease Father 89 Congestive Heart Failure Mother 87 Cancer Sister 60 skin cancer Relation Name Status Comments Brother 61 Alive Child 1 42 Alive Child 2 39 Alive Child 3 36 Alive Child 4 36 Alive Father 89 Alive Mother 87 Alive Sister 60 Alive Social History Tobacco Use Types Packs/Day Years Used Date Smoking Tobacco: Never Passive Smoke Exposure: Never Smokeless Tobacco: Never Tobacco Cessation:Counseling Given: Not Answered Alcohol Use Standard Drinks/Week Comments Not Currently 0 (1 standard drink = 0.6 oz pur e alcohol) Comments No Sex and Gender Information Value Date Recorded Sex Assigned at Female 01/19/2023 6:33 AM RAIL CAR UNLOADER Legal Sex Female 12:38 AM CDT Gender Identity Female 01/19/2023 6:33 AM RAIL CAR UNLOADER Sexual Orientation Not on file Last Filed Vital Signs Vital Sign Reading Time Taken Comments Blood Pressure 126/68 08/07/2024 1:29 PM CDT Pulse 76 08/07/2024 1:29 PM CDT Temperature 36.5 C (97.7 F) 08/07/2024 1:29 PM CDT Respiratory Rate 18 08/07/2024 1:29 PM CDT Oxygen Saturation 99% 08/07/2024 1:29 PM CDT Inhaled Oxygen Concentration - - Weight 63.5 kg (140 lb 1.6 oz) 08/07/2024 1:29 P M CDT Height 170.2 cm (5' 7) 08/07/2024 1:29 PM CDT Body Mass Index 21.94 08/07/2024 1:29 PM CDT Plan of Treatment Upcoming Encounters Date Type Department Care Team (Late st Contact Info) Description 10/30/2024 1:15 PM CDT Lab [address] [place] [address] Lab, [facility] 10/30/2024 1:45 PM CDT Office Visit [address] [place] [address] Dominik Thorne MD [address] [place] [address] [place] [address] Health Maintenance Due Date Last Done Comments Hepatitis C Virus (HCV) Screening 1960 Zoster Immunization (1 of 2) 05/15/1978 Cologuard 05/15/2004 Colonoscopy 05/15/2004 Colorectal Cancer Screening 05/15/2004 Immunochemical Fecal Occult Blood 05/15/2004 Respiratory Syncytial Virus (RSV) Immunization (Adult) (1 - Risk 60-74 years 1-dose series) 2019 SARS-COV-2 Immunization (3 - Moderna risk series) 07/18/2020 06/20/2020, 05/23/2020 Mammogram 10/24/2024 10/25/2023, 02/02/2023 Influenza Immunization (#1) 2024 09/2 09/2023, 01/10/2023, 01/04/2018, Additional history exists DEXA Bone Density 12/25/2025 12/26/2023, , 10/19/2021 Td Immunization Every 10 Years (Adults With 1 Tdap) 11/13/2033 11/14/2023 Pneumococcal Immunization (50+ years) Completed 01/25/2023 Pneumococcal Immunization Combined Discontinued 01/25/2023 DTaP/Tdap/Td Immunization Discontinued 11/14/2023 TdaP Immunization Discontinued 11/14/2023 Hepatitis B Immunization Aged Out No longer eligible based on patient's age to complete this topic Human Papillomavirus (HPV) Immunization Aged Out No longer eligible based on patient's age to complete this topic Meningococcal Immunization (ACWY) Aged Out No longer eligible based on patient's age to complete this topic Rotavirus Immunization Aged Out No lo nger eligible based on patient's age to complete this topic Procedures Procedure Name Priority Date/Time Associated Diagnosis Comments CBC WITH AUTO DIFF OH Routine 08/07/2024 1:14 PM CDT CMP (COMPREHENSIVE METABOLIC PANEL) Routine 08/07/2024 1:14 PM CDT Malignant neoplasm of left breast in female, estrogen receptor positive, unspecified site of breast (HCC) Heterogeneously dense tissue of both breasts on mammography Osteopenia determined by x-ray Normochromic normocytic anemia Postmenopausal LACTATE DEHYDROGENASE (LD) Routine 08/07/2024 1:14 PM CDT Malignant neoplasm of left breast in female, estrogen receptor positive, unspecified site of breast (HCC) Heterogeneously dense tissue of both breasts on mammography Osteopenia determined by x-ray Normochromic normocytic anemia Postmenopausal MAGNESIUM (MG) Routine 08/07/2024 1:14 PM CDT Malignant neoplasm of left breast in female, estrogen receptor positive, unspecified site of breast (HCC) Heterogeneously dense tissue of both breasts on mammography Osteopenia determined by x-ray Normochromic normocytic anemia Postmenopausal CARCINOEMBRYONIC ANTIGEN (CEA) Routine 08/07/2024 1:14 PM CDT Malignant neoplasm of left breast in female, estrogen receptor positive, unspecified site of breast (HCC) Heterogeneously dense tissue of both breasts on mammography Osteopenia determined by x-ray Normochromic normocytic anemia Postmenopausal CANCER ANTIGEN (CA) 15-3 Routine 025 1:14 PM CDT Malignant neoplasm of left breast in female, estrogen receptor positive, unspecified site of breast (HCC) Heterogeneously dense tissue of both breasts on mammography Osteopenia determined by x-ray Normochromic normocytic anemia Postmenopausal VITAMIN D, 25 HYDROXY TOTAL Routine 08/07/2024 1:14 PM CDT Malignant neoplasm of left breast in female, estrogen receptor positive, unspecified site of breast (HCC) Heterogeneously dense tissue of both breasts on mammography Osteopenia determined by x-ray Normochromic normocytic anemia Postmenopausal BRADY BONE DENSITOMETRY AXIAL SKELETON Routine 12/26/2023 Malignant neoplasm of left breast in female, estrogen receptor positive, unspecified site of breast (HCC) Heterogeneously dense tissue of both breasts on mammography Osteopenia determined by x-ray Cellulitis of other specified site Normochromic normocytic anemia Postmenopausal BRADY SCREENING BILATERAL DIGITAL W CAD W BENITA Routine 10/25/2023 8:37 AM CDT from Last 3 Months or Most Recently Relevant to Health Maintenance Results * VITAMIN D, 25 HYDROXY TOTAL (08/07/2024 1:14 PM CDT) 25() Vitamin D, Total 82.5 30.0 - 100.0 ng/mL [facility] Comment: The Clinical Guidelines Subcommittee of the Endocrine Society Task Force established the guidelines below for recommended serum 25(OH) vitamin D levels. Other clinical reference citations may show different values. Deficient <20 Insufficient 20 to <30 Sufficient 30 to 100 Upper Safety Limit >100 Blood 08/07/2024 1:14 PM CDT Narrative [facility] - 08/10/2024 2:01 PM CDT Release to patient->Immediate us Deja Chiang SPECIAL SKILLS OFFICER, DELINEATOR CHEMISTRY ORDERABLES Fin al Result [facility] [address] [place] [address], * (ABNORMAL) CBC WITH AUTO DIFF OH (08/07/2024 1:14 PM CDT) WBC 6.8 4.0 - 10.0 10*3/uL [facility] HGB 11.7 11.2 - 15.7 g/dL [facility] HCT 34.8 34.1 - 44.9 % [facility] PLT 247 163 - 369 10*3/uL [facility] MPV 9.1(L) 9.4 - 12.4 fL [facility] RBC 3.68(L) 3.93 - 5.22 10*6/uL [facility] MCV 95 79 - 95 fL [facility] MCH 31.8 25.6 - 32.2 pg [facility] MCHC 33.6 32.2 - 36.5 g/dL [facility] RDW 12.4 11.6 - 14.4 % [facility] Neutrophils % 50.3 36.0 - 66.0 % [facility] Lymphocytes % 40.3(H) 19.0 - 40.0 % [facility] Monocytes % 6.1 4.1 - 12.1 % [facility] Eosinophils % 2.2 0.0 - 3.5 % [facility] Basophils % 0.7 0.0 - 1.0 % [facility] Absolute Neutrophils 3.4 1.4 - 6.6 10*3/uL [facility] Absolute Lymphocytes 2.7 0.8 - 4.0 10*3/uL [facility] Absolute Monocytes 0.4 0.2 - 1.2 10*3/uL [facility] Absolute Eosinophils 0.2 0.0 - 0.4 10*3/uL [facility] Absolute Basophils 0.1 0.0 - 0.1 10*3/uL [facility] 08/07/2024 1:14 PM CDT us Deja Chiang SPECIAL SKILLS OFFICER, DELINEATOR LAB SEND OUTS Final Re sult [facility] [address] [place] [address], * MAGNESIUM (MG) (08/07/2024 1:14 PM CDT) Magnesium 2.3 1.9 - 2.7 mg/dL [facility] Blood 08/07/2024 1:14 PM CDT Narrative [facility] - 08/07/2024 2:28 PM CDT Release to patient->Immediate Deja Chiang SPECIAL SKILLS OFFICER, DELINEATOR CHEMISTRY ORDERABLES Fin al Result Performing Organization Address City/[facility]/ZIP Co de Phone Number [facility] [place] [address], [place] [phone] * LACTATE DEHYDROGENASE (LD) (08/07/2024 1:14 PM CDT) LDH 162 140 - 271 U/L [facility] Blood 08/07/2024 1:14 PM CDT Narrative [facility] - 08/07/2024 2:28 PM CDT Release to patient->Immediate Deja Chiang SPECIAL SKILLS OFFICER, DELINEATOR CHEMISTRY ORDERABLES Fin al Result Performing Organization Address [facility] Co de Phone Number [facility] [place] [address], [place] [phone] * (ABNORMAL) CMP (COMPREHENSIVE METABOLIC PANEL) (08/07/2024 1:14 PM CDT) Glucose 100 70 - 105 mg/dL [facility] Blood Urea Nitrogen 15 7 - 25 mg/dL [facility] Creatinine 0.6 0.6 - 1.2 mg/dL [facility] Sodium 142 136 - 145 mEq/L [facility] Potassium 4.1 3.5 - 5.1 mEq/L [facility] Chloride 106 98 - 107 mEq/L [facility] Bicarbonate 29 21 - 31 mEq/L [facility] Total Bilirubin 0.4 0.3 - 1.0 mg/dL [facility] Alk. Phosphatase 105(H) 34 - 104 U/L [facility] Aspartate Aminotransferase 14 13 - 39 U/L [facility] Alanine Aminotransferase 13 7 - 52 U/L [facility] Total Protein 7.0 6.4 - 8.9 g/dL [facility] Albumin 4.8 3.5 - 5.7 g/dL [facility] Calcium 9.7 8.6 - 10.3 mg/dL [facility] Anion Gap 11.1 7.0 - 15.0 mEq/L [facility] Globulin 2.2 2.0 - 3.5 g/dL [facility] EGFR 99 >60 ml/min/1. 73m2 [facility] Comment: This eGFR is calculated using 2020 CKD-EPI Creatinine equation without race modifier based on the NKF-ASN task force recommendations Equation: oAAE=079*min(SCr/k,1)a*max(SCr/k,1)-1.200*0.9938Age*1.012 (if female), where SCr is serum creatinine, k is 0.7 for females and 0.9 for males, and a is -0.241 for females and -0.302 for males Blood 08/07/2024 1:14 PM CDT Narrative [facility] - 08/07/2024 2:28 PM CDT Release to patient->Immediate IS THE PATIENT REQUIRED TO BE FASTING FOR 8 HOURS?->No us Deja Chiang SPECIAL SKILLS OFFICER, DELINEATOR CHEMISTRY ORDERABLES Fin al Result [facility] [place] [address], * CARCINOEMBRYONIC ANTIGEN (CEA) (08/07/2024 1:14 PM CDT) CEA 1.1 0.0 - 5.0 ng/mL [facility] Comment: Lydia Paramagnetic Particle Chemiluminescent Immunoassay Method Blood 08/07/2024 1:14 PM CDT Narrative [facility] - 08/08/2024 2:12 PM CDT Release to patient->Immediate Deja Chiang SPECIAL SKILLS OFFICER, DELINEATOR CHEMISTRY ORDERABLES Fin al Result Performing Organization Address City/[facility]/ZIP Co de Phone Number [facility] [place] [address], [place] [phone] * CANCER ANTIGEN (CA) 15-3 (08/07/2024 1:14 PM CDT) CA15-3 9.9 0.0 - 31.3 U/mL [facility] Comment: Lydia Paramagnetic Particle Chemiluminescent Immunoassay Method Blood 08/07/2024 1:14 PM CDT Narrative [facility] - 08/08/2024 2:07 PM CDT Release to patient->Immediate Deja Chiang SPECIAL SKILLS OFFICER, DELINEATOR CHEMISTRY ORDERABLES Fin al Result Performing Organization Address [facility] Co de Phone Number [facility] Care [address] [address], [place] [phone] * BRADY BONE DENSITOMETRY AXIAL SKELETON (12/26/2023) Anatomical Region Laterality Modality BODY N/A Other us Dominik Thorne MD IMG DEXA ORDERABLES Final Result * BRADY SCREENING BILATERAL DIGITAL W CAD W BENITA (10/25/2023 8:37 AM CDT) Anatomical Region Laterality Modality breast Bilateral Mammography us Not On File Provider IMG MAMMO ORDERABLES Edited Result - Final from Last 3 Months or Most Recently Relevant to Health Maintenance Insurance MEDICARE FOR LIFE Care Teams Circus Rider Relationship Specialty Start Date End Date Akshat Castillo DO PCP - General Family Medicine 01/19/23 Song Ledesma MD [address] [address] Referring Provider General Surgery 01/19/23 Dominik Thorne MD [address] [place] [address] [place] [address] Consulting Physician Oncology 01/19/23 Som Moeller MD [address] [place] [address] [place] [address] Consulting Physician Radiation Oncology 04/26/23
--- OUTSIDE RECORDS SUMMARY | 2024-10-25 10:28 | XMS_ITS | Clinical Summary ---
Author Organization [facility] Address [address] [place] [address] Care Team Providers Care Leasing Coordinator Name Role Phone Akshat Castillo DO Primary Care Provider [phone] Allergies Active Allergy Reactions Criticality Noted Date Comments Gluten Meal Diarrhea 02/24/2023 Dairy and Gluten- Irritable Bowel Syndrome Trazodone Tachycardia 12/23/2022 Medications atorvastatin (LIPITOR) 20 MG tablet 10/17/2022 Active LINZESS 72 MCG capsule Take 290 mcg by mouth every morning before breakfast. 09/28/2022 Active omeprazole (PRILOSEC) 40 MG capsule Take 1 capsule (40 mg total) by mouth daily. 11/02/2022 Active zolpidem (AMBIEN) 10 MG tablet Take 12.5 mg by mouth nightly as needed for Sleep. 11/24/2022 Active Albuterol Sulfate 108 (90 Base) MCG/ACT AEROSOL POWDER, BREATH ACTIVATED daily as needed. 01/07/2023 Active vitamin C (ASCORBIC ACID) 500 MG tablet Take 1 tablet (500 mg total) by mouth daily. 01/07/2023 Active Cholecalciferol (VITAMIN D3) 1000 units Cap Take 1,000 Units by mouth daily. 01/07/2023 Active Cyanocobalamin (VITAMIN B-12 CR) 1000 MCG Tab CR Take 1 tablet by mouth daily. Active fish oil (OMEGA-3 FATTY ACID) 1000 MG Cap capsule Take 1 capsule (1,000 mg total) by mouth daily. 01/07/2023 Active Probiotic Product (ALIGN OR) Take 1 capsule by mouth daily. 01/07/2023 Active Cranberry-Vitam in C-Probiotic (AZO CRANBERRY OR) Take 1 tablet by mouth daily. Active Acetaminophen (TYLENOL ARTHRITIS PAIN OR) Take by mouth as needed. Active acetaminophen (TYLENOL) 325 MG tablet Take 2 tablets (650 mg total) by mouth every 4 (four) hours as needed for Pain. For Mild Pain or Fever 03/08/2023 Active zaleplon (SONATA) 10 MG capsule Take 1 capsule (10 mg total) by mouth nightly at bedtime. 03/22/2023 Active LORazepam (ATIVAN) 0.5 MG tabletIndicatio ns:Insomnia,IBS (irritable bowel syndrome) Take 1 tablet (0.5 mg total) by mouth nightly at bedtime. 21 tablet 1 03/23/2023 Active venlafaxine XR (EFFEXOR-XR) 37.5 MG 24 hr capsule TAKE ONE CAPSULE BY MOUTH DAILY FOR 7 DAYS 03/25/2023 Active Active Problems Problem Noted Date Diagnosed Date Invasive lobular carcinoma o f breast, stage 1, left ([facility]) 03/11/2023 Encounters Date Type Department Care Team Description 10/19/2024 7:30 AM CDT Office Visit [facility] [address] [place] [address] Sharyn Rob, APNP Beny, Isabell S, TENSION WORKER Constipation (Visit #9) 10/19/2024 Travel 10/01/2024 10:00 AM CDT Office Visit [facility] [address] [place] [address] NehalLisbet villavicencio, PT Constipation; Pelvic Pain (Visit 8 ) 10/01/2024 Travel 09/25/2024 7:00 AM CDT Office Visit [facility] [place] [address] NehalLisbet villavicencio, PT Pelvic Pain; Constipation (Visit 7 ) 09/25/2024 Travel 09/18/2024 3:00 PM CDT Office Visit [facility] [address] [place] [address] Lisbet Calvert, PT Constipation; Pelvic Pain (Visit 6) 09/18/2024 Travel 09/10/2024 8:00 AM CDT Office Visit [facility] [address] [place] [address] Sharyn Rob, Isabell Campos S, TENSION WORKER Constipation (Visit #5) 09/10/2024 Travel 08/30/2024 10:00 AM CDT Office Visit [facility] [address] [place] [address] Sharyn Rob, Lisbet Lopez, PT Pelvic Pain; Constipation (Visit 4) 08/30/2024 Travel 08/24/2024 7:30 AM CDT Office Visit [facility] [address] [place] [address] Sharyn Rob, Isabell Campos S, TENSION WORKER Constipation (Visit #3) 08/24/2024 Travel 08/14/2024 1:00 PM CDT Office Visit [facility] [address] [place] [address] Sharyn Rob, Nina Judd L, DPT Constipation; Pelvic Pain (Visit 2) 08/14/2024 Travel 08/09/2024 7:45 AM CDT Office Visit [facility] [address] [place] [address] Lisbet Calvert, PT Sharyn Rob, SHER Constipation; Pelvic Pain (Evaluation) 08/09/2024 Travel from Last 3 Months Immunizations Immunization Administration Dates Next Due Tdap (Boostrix) 11/14/2023 Family History Medical History Relation Comments Diabetes Father Heart Disease Father Hypertension Father Kidney Disease Father Cancer Mother Heart Disease Mother Relation Status Comments Father Alive Mother Social History Tobacco Use Types Packs/Day Years Used Date Smoking Tobacco: Never Smokeless Tobacco: Never Alcohol Use Standard Drinks/Week Comments Never 0 (1 standard drink = 0.6 oz pur e alcohol) PHQ-2 Answer Date Recorded Patient Health Questionnaire-2 Score 0 03/23/2023 Comments No Sex and Gender Information Value Date Recorded Sex Assigned at Not on file Legal Sex Female 10:21 PM PROGRAM COUNSELOR Gender Identity Not on file Sexual Orientation Not on file Last Filed Vital Signs Vital Sign Reading Time Taken Comments Blood Pressure 174/79 11/14/2023 10:16 AM CDT Pulse 92 11/14/2023 10:16 AM CDT Temperature 36.7 C (98 F) 11/14/2023 10:16 AM CDT Respiratory Rate 18 11/14/2023 10:16 AM CDT Oxygen Saturation 100% 11/14/2023 10:16 AM CDT Inhaled Oxygen Concentration - - Weight 61.2 kg (135 lb) 11/14/2023 10:16 AM CDT Height 167.6 cm (5' 6) 11/14/2023 10:16 AM CDT Body Mass Index 21.79 11/14/2023 10:16 AM CDT Plan of Treatment Health Maintenance Due Date Last Done Comments Colorectal Cancer Screening Colonoscopy (10 Years) 1959 Hepatitis C 05/15/1977 Mammogram Screening 1999 Zoster Vaccines (1 of 2) 05/15/2009 COVID-19 Vaccine (3 - 2023-2 5 season) 2023 06/20/2020, 05/23/2020 PHQ-2 (Physician [facility]) 03/07/2024 03/23/2023 DTaP, Tdap and Td Vaccines ( 2 - Td or Tdap) 11/13/2033 11/14/2023 RSV Immunization or 60+ Years (1 - 1-dose 75+ series) 05/15/2034 Pneumococcal Vaccine: 50+ Years Completed 01/25/2023 Dexa Scan (General) Completed 12/26/2023, 12/26/2023, 07/26/2023 Meningococcal B Vaccine Aged Out No l onger eligible based on patient's age to complete this topic Meningococcal Vaccine Aged Out No madi giovanni eligible based on patient's age to complete this topic RSV Immunizations Under 20 Months Aged Out No longer eligible b ased on patient's age to complete this topic Medical Devices Implanted Type Area Institution Director Device Identifier Shelf Expiration Date Model / Serial / Lot Right Thr, Right Heel Hardware Insurance MEDICARE [facility] [employer] Care Teams Leasing Coordinator Relationship Specialty Start Date End Date Akshat Castillo DO [address] [place] [address] PCP - General FAMILY PRACTICE 02/24/23
--- OUTSIDE RECORDS SUMMARY | 2024-10-25 10:28 | XMS_ITS | Encounter Summary ---
Author Organization [facility] Address [address] [place] [address] Phone Care Team Providers Care Information Technology Audit Manager Name Role Phone Akshat Castillo DO Primary Care Provider [phone] Song Ledesma MD Unavailable [phone] Dominik Thorne MD Unavailable Som Moeller MD Unavailable [phone] Reason for Visit * Reason Onset Date Comments Medication Refill 07/18/2023 Arimidex RF re quest Encounter Details Date Type Department Care Team (Late st Contact Info) Description 07/18/2023 Refill [facility] [address] [place] [address] [place] [address] Dominik Thorne MD [address] [place] [address] [place] [address] Medication Refill (Arimidex RF request/) Social History Tobacco Use Types Packs/Day Years Used Date Smoking Tobacco: Never Passive Smoke Exposure: Never Smokeless Tobacco: Never Alcohol Use Standard Drinks/Week Comments Not Currently 0 (1 standard drink = 0.6 oz pur e alcohol) Comments No Sex and Gender Information Value Date Recorded Sex Assigned at Female 01/19/2023 6:33 AM ACCOUNTS PAYABLE PAYROLL COORDINATOR Legal Sex Female 12:38 AM CDT Gender Identity Female 01/19/2023 6:33 AM ACCOUNTS PAYABLE PAYROLL COORDINATOR Sexual Orientation Not on file documented as of this encounter Miscellaneous Notes * Telephone Encounter - Uthell, Dayami A, FLOOR SCRUBBER - 07/18/2023 10:32 AM CDT Tristan KEYS request. documented in this encounter Plan of Treatment Upcoming Encounters Date Type Department Care Team (Late st Contact Info) Description 10/30/2024 1:15 PM CDT Lab [address] [place] [address] [place] 10/30/2024 1:45 PM CDT Office Visit [address] [place] [address] Dominik Thorne MD [address] [place] [address] [place] [address] documented as of this encounter Visit Diagnoses Not on filedocumented in this encounter Care Teams Information Technology Audit Manager Relationship Specialty Start Date End Date Akshat Castillo DO PCP - General Family Medicine 01/19/23 Song Ledesma MD [address] [address] Referring Provider General Surgery 01/19/23 Dominik Thorne MD [address] [place] [address] [place], [place] [phone] Consulting Physician Oncology 01/19/23 Som Moeller MD [address] [place] [address] [place] [id number] [phone] Consulting Physician Radiation Oncology 04/26/23 documented as of this encounter
--- OUTSIDE RECORDS SUMMARY | 2024-10-25 10:28 | XMS_ITS | Encounter Summary ---
Author Organization [facility] Address [address] [place] [address] Phone Care Team Providers Care Delivery Consultant Name Role Phone Akshat Castillo Primary Care Provider [phone] Encounter Details Date Type Department Care Team (Late st Contact Info) Description 12/12/2023 Telephone [facility] [address] [place], [place] [address] Brionna Amos APRN [address] [place], [place] [address] Social History Tobacco Use Types Packs/Day Years Used Date Smoking Tobacco: Never Assessed Comments Unknown Sex and Gender Information Value Date Recorded Sex Assigned at Not on file Legal Sex Female 3:04 PM CDT Gender Identity Female 10/17/2023 9:49 AM CDT Sexual Orientation Straight 10/17/2023 9: 49 AM CDT documented as of this encounter Miscellaneous Notes * Telephone Encounter - Lexi Looney - 12/12/2023 1:49 PM CDT Pt scheduled * Telephone Encounter - Brionna Amos APRN - 12/12/2023 1:34 PM CDT Please schedule this patient for an appointment with me in 3 to 4 months from now for follow-up of sleep apnea ([place] [facility] schedule only). An order for CPAP has been sent to her medical supply [employer]. She should make arrangements with her medical supply company to get the CPAP machine soon. Thank you, Brionna Amos APRN documented in this encounter Plan of Treatment Not on file documented as of this encounter Visit Diagnoses Not on filedocumented in this encounter Care Teams Delivery Consultant Relationship Specialty Start Date End Date Akshat Castillo DO [address] [place] [address] PCP - General Family Medicine 06/10/23 documented as of this encounter
--- OUTSIDE RECORDS SUMMARY | 2024-10-25 10:28 | XMS_ITS | Encounter Summary ---
Author Organization [facility] Address [address] [place] [address] Phone Care Team Providers Care Parts Department Supervisor Name Role Phone Akshat Castillo DO Primary Care Provider [phone] Song Ledesma MD Unavailable [phone] Dominik Thorne MD Unavailable Som Moeller MD Unavailable [phone] Encounter Details Date Type Department Care Team (Late st Contact Info) Description 01/19/[address] [place] [address] Dominik Thorne MD [address] [place] [address] [place] [address] Social History Tobacco Use Types Packs/Day Years Used Date Smoking Tobacco: Never Smokeless Tobacco: Never Alcohol Use Standard Drinks/Week Comments Not Currently 0 (1 standard drink = 0.6 oz pur e alcohol) Comments No Sex and Gender Information Value Date Recorded Sex Assigned at Female 01/19/2023 6:33 AM LABORATORY MONITOR Legal Sex Female 12:38 AM CDT Gender Identity Female 01/19/2023 6:33 AM LABORATORY MONITOR Sexual Orientation Not on file documented as of this encounter Functional Status * Question Answer Date of Assessment Author Little interest or pleasure in doing things Not at all 01/19/2023 6:51 AM LABORATORY MONITOR Margaux Romeo LPN Feeling down, depressed, or hopeless Not at all 01/19/2023 6:51 AM Margaux Harrison LPN * Over the past 2 weeks, how often have you been bothered by any of the following problems? Question Answer Date of Assessment Author Patient Health Questionnaire -2 Score 0 01/19/2023 6:51 AM Margaux Harrison LPN documented as of this encounter Plan of Treatment Upcoming Encounters Date Type Department Care Team (Late st Contact Info) Description 10/30/2024 1:15 PM CDT Lab [address] [place] [address] Lab, [place] 10/30/2024 1:45 PM CDT Office Visit [address] [place] [address] Dominik Thorne MD [address] [place] [address] [place] [address] documented as of this encounter Visit Diagnoses Not on filedocumented in this encounter Care Teams Parts Department Supervisor Relationship Specialty Start Date End Date Akshat Castillo DO PCP - General Family Medicine 01/19/23 Song Ledesma MD [address] [address] Referring Provider General Surgery 01/19/23 Dominik Thorne MD [address] [place] [address] [place] [address] Consulting Physician Oncology 01/19/23 Som Moeller MD [address] [place] [address] [place] [address] Consulting Physician Radiation Oncology 04/26/23 documented as of this encounter
--- OUTSIDE RECORDS SUMMARY | 2024-10-25 10:28 | XMS_ITS | Clinical Summary ---
Author Organization [facility] Address [address] [place] [address] Phone Care Team Providers Care Rn Icu Name Role Phone Akshat Castillo Primary Care Provider [phone] Allergies Active Allergy Reactions Criticality Noted Date Comments Gluten Unknown 09/05/2023 Milk Containing Products (Dairy) Unknown 09/05/2023 Trazodone Other; see comment 12/23/2022 tachycardia Medications * This document contains information received from the source organization and may not represent a complete record from that organization. amLODIPine (NORVASC) 10 mg tablet Take 10 mg by mouth every day 4 Active LINZESS 290 mcg capsule Take 290 mcg by mouth every day Active omeprazole (PRILOSEC) 40 mg delayed release capsule Take 40 mg by mouth every day 3 Active atorvastatin (LIPITOR) 80 mg tablet Take 80 mg by mouth daily at bedtime 4 Active anastrozole (ARIMIDEX) 1 mg tablet Take 1 mg by mouth every day 4 Active Bifidobacterium infantis (ALIGN OR) mg, Oral, Daily, 0 Refill(s), Maintenance 3 Active ascorbic acid, vitamin C, (VITAMIN C) 1,000 mg Tab Daily, 0 Refill(s), Maintenance 3 Active Boyds-3 Fatty Acids 1,000 mg Cap Take by mouth every day 3 Active cetirizine (ZYRTEC) 10 mg tablet Take 10 mg by mouth 4 Active vit B complex 100 no.2/herbs (VITAMIN B COMPLEX 100 2-HERBS OR) 0 Refill(s), Maintenance 3 Active calcium carbonate-vit D (CALTRATE-600 +VIT D) 600 mg-10 mcg (400 unit) tablet Take 250 mg by mouth every day Active zolpidem (AMBIEN) 5 mg tabletIndicatio ns:Chronic insomnia,[place] sleep apnea Take 1 tablet (5 mg total) by mouth at bedtime as needed (for sleep study) 2 tablet 4 Active venlafaxine (EFFEXOR XR) 150 mg extended release capsule Take 150 mg by mouth Active ramelteon (ROZEREM) 8 mg TabIndications: DEAN (obstructive sleep apnea),Chronic insomnia TAKE 1 TABLET(8 MG) BY MOUTH DAILY AT BEDTIME 30 tablet 1 5 Active Active Problems No known active problems Encounters Date Type Department Care Team Description 09/14/2024 Telephone [facility] [address] [place] [address] Brionna Amos APRN 08/06/2024 Refill [facility] [address] [place] [address] Brionna Amos APRN Refill Request from Last 3 Months Social History Tobacco Use Types Packs/Day Years Used Date Smoking Tobacco: Never Assessed Comments Unknown Sex and Gender Information Value Date Recorded Sex Assigned at Not on file Legal Sex Female 3:04 PM CDT Gender Identity Female 10/17/2023 9:49 AM CDT Sexual Orientation Straight 10/17/2023 9: 49 AM CDT Last Filed Vital Signs Vital Sign Reading Time Taken Comments Blood Pressure 142/86 06/07/2024 11:25 AM CDT Pulse 93 06/07/2024 11:25 AM CDT Temperature - - Respiratory Rate 18 06/07/2024 11:25 AM CDT Oxygen Saturation 100% 06/07/2024 11:25 AM CDT Inhaled Oxygen Concentration - - Weight 63.3 kg (139 lb 9.6 oz) 06/07/2024 11:25 AM CDT Height 167.6 cm (5' 6) 09/05/2023 2:47 PM CDT Body Mass Index 22.53 09/05/2023 2:47 PM CDT Plan of Treatment Health Maintenance Due Date Last Done Comments Diagnostic Colonoscopy 1959 MMR Vaccines (1 of 1 - Standard series) 05/15/1960 Depression Screening 1971 Lipid Panel 1979 Pap Smear 05/15/1980 Cervical Cancer Screening 05/15/1989 HPV/Co-Testing 05/15/1989 Screening for Diabetes 05/15/1994 Breast Cancer Screening 1999 CT Colonography 05/15/2004 Colorectal Cancer Screening 05/15/2004 FIT-DNA (Cologuard) 05/15/2004 Fecal Immunochemical Testing (FIT) 05/15/2004 Fecal Occult Blood (FOBT) 05/15/2004 Flexible Sigmoidoscopy 05/15/2004 Screening Colonoscopy 05/15/2004 HCPOA Document on File 05/15/2009 Zoster (Shingles) Vaccine (1 of 2) 05/15/2009 RSV Vaccine (60+/) (1 - Risk 60-74 years 1-dose series) 2019 COVID-19 Vaccine (3 - season) 2023 06/20/2020, 05/23/2020 Eligible for Welcome to Medicare Exam 05/05/2024 Fall Screening 05/15/2024 Influenza Vaccine (#1) 2024 , 01/10/2023, 01/04/2018, Additional history exists DTaP/Tdap/Td Vaccines (2 - Td or Tdap) 11/13/2033 11/14/2023 Pneumococcal Vaccines (50+) Completed 01/25/2023 HIB Vaccines Aged Out No longer eligi ble based on patient's age to complete this topic HPV Vaccines Aged Out No longer eligi ble based on patient's age to complete this topic Hepatitis A Vaccines Aged Out No long er eligible based on patient's age to complete this topic Hepatitis B Vaccines Aged Out No long er eligible based on patient's age to complete this topic IPV Vaccines Aged Out No longer eligi ble based on patient's age to complete this topic Meningococcal B Vaccine Aged Out No l onger eligible based on patient's age to complete this topic Meningococcal Vaccine (ACWY) Aged Out No longer eligible based on patient's age to complete this topic Rotavirus Vaccines Aged Out No longer eligible based on patient's age to complete this topic Insurance MEDICARE [facility] MEDICARE Care Teams Rn Icu Relationship Specialty Start Date End Date Akshat Castillo DO [address] [place] [address] PCP - General Family Medicine 06/10/23
--- OUTSIDE RECORDS SUMMARY | 2024-10-25 10:28 | XMS_ITS | Encounter Summary ---
Author Organization [facility] Address [address] [place] [address] Phone Care Team Providers Care Profiler Operator Name Role Phone Akshat Castillo DO Primary Care Provider [phone] Song Ledesma MD Unavailable [phone] Dominik Thorne MD Unavailable Som Moeller MD Unavailable [phone] Reason for Visit * Reason Onset Date Comments genetic test results 02/11/2023 Encounter Details Date Type Department Care Team (Late st Contact Info) Description 02/11/2023 Telephone [facility] [address] [place] [address] [place] [address] Dominik Thorne MD [address] [place] [address] [place] [address] genetic test results Social History Tobacco Use Types Packs/Day Years Used Date Smoking Tobacco: Never Smokeless Tobacco: Never Alcohol Use Standard Drinks/Week Comments Not Currently 0 (1 standard drink = 0.6 oz pur e alcohol) Comments No Sex and Gender Information Value Date Recorded Sex Assigned at Female 01/19/2023 6:33 AM REFUSE DRIVER Legal Sex Female 12:38 AM CDT Gender Identity Female 01/19/2023 6:33 AM REFUSE DRIVER Sexual Orientation Not on file documented as of this encounter Miscellaneous Notes * Telephone Encounter - Dayami Guerrero LPN - 02/11/2023 10:50 AM CST I called Jamie with Dr Thorne's recommendations. She voiced understanding. SE DRIVER * Telephone Encounter - Dayami Guerrero LPN - 02/11/2023 10:02 AM CST ----- Message from Dominik Thorne MD sent at 02/10/2023 10:31 PM REFUSE DRIVER ----- Call pt -- her genetic test is negative. Great. SE DRIVER documented in this encounter Plan of Treatment Upcoming Encounters Date Type Department Care Team (Late st Contact Info) Description 10/30/2024 1:15 PM CDT Lab [address] [place] [address] Perri Baker 10/30/2024 1:45 PM CDT Office Visit [address] [place] [address] Dominik Thorne MD [address] [place] [address] [place] [address] documented as of this encounter Visit Diagnoses Not on filedocumented in this encounter Care Teams Profiler Operator Relationship Specialty Start Date End Date Akshat Castillo DO PCP - General Family Medicine 01/19/23 Song Ledesma MD [address] [id number] Referring Provider General Surgery 01/19/23 Dominik Thorne MD [address] [place] [address] [place] [address] Consulting Physician Oncology 01/19/23 Som Moeller MD [address] [facility] [address] [place], [place] [address] Consulting Physician Radiation Oncology 04/26/23 documented as of this encounter
== END 2024-10-25 09:52 | disposition home or self-care (01) ==
LOC: ANHFOHIMG 09:53
DX: Z12.31 Encounter for screening mammogram for malignant neoplasm of breast (principal)
CPT/HCPCS: 77063; 77067